=== PATIENT | male | born 1940 | race Caucasian/White ===

== ENCOUNTER 2017-07-28 15:28 | Inpatient (IN) ==
[2017-07-28] MEDS ORDERED: ASPIRIN 325 MG TABLET PO STA (15:56)
[2017-07-28] MEDS ORDERED: NITROGLYCERIN 2% OINT 1 INCH/GM PACK TOP STA (15:56)
[2017-07-28] MEDS ORDERED: ONDANSETRON 4 MG/2 ML VIAL IV STA (15:56)
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
[2017-07-28 16:28] LABS: Basophils % 0.7 % (0.0-0.8); Eosinophils # 0.1 10*3/uL (0.0-0.87); Eosinophils % 2.2 % (0.00-10.9); Hematocrit 37.2 VOL% (42.0-52.0); Hemoglobin 12.5 GM/DL (14.0-18.0); Immature Granulocytes % 0.4 %; Immature Granulocytes Absolute 0.02 #; Lymphocytes % 18.2 % (21.2-54.2); Mean Corpuscular HGB Conc 33.6 GM/DL (32-36); Mean Corpuscular Hemoglobin 28 PG (27-34); Mean Corpuscular Volume 82.1 FL (87-102); Mean Platelet Volume 11.9 FL (9.6-12.0); Monocytes # 0.6 10*3/uL (0.11-0.8); Monocytes % 11.2 % (1.7-12.7); Neutrophils # 3.6 10*3/uL (1.4-7.4); Neutrophils % 67.3 % (38.7-73.9); Platelet Count 120 T/CUMM (130-400); Red Blood Count 4.53 MC/CUMM (3.8-5.5); Red Cell Distribution Width 14.6 % (9.3-17.3); White Blood Count 5.4 T/CUMM (4-12)
[2017-07-28 16:34] LABS: Apearance,Urine CLEAR (Clear); Bilirubin,Urine Negative (Negative); Blood, Urine Negative (Negative); Glucose,Urine (UA) Negative (Negative); Ketones,Urine Negative (Negative); Mucus,Urine Occasional /LPF (Occasional); Nitrite,Urine Negative (Negative); Protein,Urine Negative; RBC,Urine <1 /HPF (0-4); Urine Color Straw (Yellow); Urine Specific Gravity 1.003 (1.001-1.035); Urine Urobilinogen < 2.0 EU/DL (0.2-1.0)
[2017-07-28] MEDS ORDERED: ASPIRIN 325 MG TABLET ONE (16:37)
[2017-07-28] MEDS ORDERED: NITROGLYCERIN 2% OINT 1 INCH/GM PACK TOP ONE (16:37)
[2017-07-28] MEDS ORDERED: ONDANSETRON 4 MG/2 ML VIAL ONE (16:37)
[2017-07-28 16:56] LABS: INR 1.1; PT Patient Result 11.9 SECS; Partial Thromboplastin Time 31.5 SECS (0-40)
[2017-07-28 17:02] LABS: Alanine Aminotransferase 17 U/L (16-61); Albumin 3.7 G/DL (3.4-5.0); Alkaline Phosphatase 69 U/L (45-117); Aspartate Amino Transferase 17 U/L (0-37); Blood Urea Nitrogen 22 MG/DL (7-18); Calcium 9.7 MG/DL (8.5-10.1); Glucose 135 MG/DL (74-106); Magnesium 2.2 MG/DL (1.8-2.4); Osmolality,Calculated 279.7 MOS/KG (273-304); Potassium 3.9 MMOL/L (3.5-5.1); Sodium 138 MMOL/L (136-145); Total Protein 6.8 G/DL (6.4-8.3); Troponin I Only 0.024 NG/ML (0.00-0.045)
[2017-07-28] MEDS ORDERED: ONDANSETRON 4 MG/2 ML VIAL IV PRN (17:13)
[2017-07-28] MEDS ORDERED: DEXTROSE 50% 25 GM/50 ML SYRINGE IV PRN (17:13)
[2017-07-28] MEDS ORDERED: GLUCAGON 1 MG VIAL IM PRN (17:13)
--- NOTE | 2017-07-28 18:35 | XRay Report ---
Portable chest July 28, 2017 Indication: Shortness of breath Comparison images dated July 25, 2017 Findings: Coronary artery bypass graft with stable cardiomegaly. Lungs are clear bilaterally. No acute osseous abnormality. Impression: Stable chest. No acute cardiopulmonary findings PROCEDURE INTERPRETED AT [facility] DEPARTMENT OF RADIOLOGY Final Report Signed by: Viet Preciado
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
[2017-07-28] MEDS ORDERED: ZALEPLON 5 MG CAPSULE PO PRN (20:24)
[2017-07-28] MEDS ORDERED: FUROSEMIDE 40 MG/4 ML VIAL IV ONE (20:26)
[2017-07-28] MEDS: ISOSORBIDE MONONITRATE 60 MG TABLET PO SCH (20:50)
[2017-07-28] MEDS: POTASSIUM CHLORIDE 10 MEQ TABLET PO SCH (20:50)
[2017-07-28] MEDS: traZODone 50 MG TABLET PO SCH (20:50)
[2017-07-28] MEDS: PANTOPRAZOLE 40 MG TABLET PO SCH (20:51)
[2017-07-28] MEDS: CARVEDILOL 6.25 MG TABLET PO SCH (20:51)
[2017-07-28] MEDS: POTASSIUM CITRATE 10 MEQ TABLET PO SCH (20:51)
[2017-07-28] MEDS ORDERED: FUROSEMIDE 40 MG TABLET PO SCH (21:00)
[2017-07-28] MEDS ORDERED: CARVEDILOL 3.125 MG TABLET PO SCH (21:00)
[2017-07-28] MEDS: NITROGLYCERIN 2% OINT 1 INCH/GM PACK TOP SCH (21:37)
[2017-07-29] MEDS: NITROGLYCERIN 2% OINT 1 INCH/GM PACK TOP SCH ×2 (01:04→09:27)
[2017-07-29 05:40] LABS: Calcium 9.3 MG/DL (8.5-10.1); Magnesium 2.3 MG/DL (1.8-2.4); Osmolality,Calculated 285.4 MOS/KG (273-304); Potassium 3.8 MMOL/L (3.5-5.1)
[2017-07-29 05:45] LABS: Troponin I Only 0.03 NG/ML (0.00-0.045)
--- NOTE | 2017-07-29 06:58 | EKG Report ---
Stationary ECG Study [facility] ER Test Date: 07/28/2017 3:36:22 PM Pat Name: BRIDGETTE GILLESPIE Department: Room: 275 Gender: M Rn Corrections: : 1940 Requested by: Vandana Camp Order Number: [id number] Alan MD: JAHAIRA BISHOP Intervals [place] Rate: 62 P: 999 PA: 0 QRS: 12 QRSD: 106 T: 147 QT: 421 QTc: 426 Interpretive Statements ATRIAL FIBRILLATION POSSIBLE OLD ANTEROSEPTAL INFARCT NSSTT Electronically Signed On 07-29-17 15:39:07 CDT by JAHAIRA BISHOP [email or web address]
--- NOTE | 2017-07-29 07:39 | EKG Report ---
Stationary ECG Study [facility] Test Date: 07/29/2017 7:38:47 AM Pat Name: BRIDGETTE GILLESPIE Department: Room: 275 Gender: M Brick Maker: : 1940 Requested by: Ludwig Arriaga Order Number: [id number] Reading MD: JAHAIRA BISHOP Intervals [place] Rate: 59 P: 999 UT: 0 QRS: 48 QRSD: 108 T: 47 QT: 456 QTc: 454 Interpretive Statements ATRIAL FIBRILLATION LOW QRS VOLTAGE IN PRECORDIAL LEADS Electronically Signed On 07-29-17 16:02:28 CDT by JAHAIRA BISHOP [email or web address]
[2017-07-29] MEDS ORDERED: FUROSEMIDE 40 MG TABLET PO SCH (08:00)
[2017-07-29] MEDS ORDERED: POTASSIUM CHLORIDE 20 MEQ TABLET PO SCH (09:00)
--- NOTE | 2017-07-29 09:50 | Cardiology Progress Note ---
Cardiology - PN: Subj Interval history: Cardiology note 76-year-old man admitted with chest pain and shortness of breath. Chest x-ray shows cardiomegaly with cephalization of flow and elevated BNP 354. Feels better today. He is worried about his invalid who is at home and bedridden. No chest pain Telemetry shows controlled A. fib O2 sat 94% on 2 L Irregular rhythm no murmur Decreased breath sounds but fairly clear Abdomen benign Left carotid enterectomy scar with faint bilateral bruits Lab data today Sodium 140 potassium 3.8 chloride 103 CO2 33 BUN 23 creatinine 1.60 Total CPK negative 2 with trivial troponin 0 0.024 and 0.030 Glucose 159 magnesium 2.3 INR 1.1 Impression Recurrent chest pain and shortness of breath CHF with cardiomegaly cephalization of flow and elevated BNP 354 Status post three-vessel CABG November 1995 PEREZ graft to LAD, vein graft to diagonal, vein graft to right coronary Status post mid RCA stent May 26, [address] Guerin. At that time the vein graft to the right coronary and vein graft to diagonal were occluded with a patent PEREZ Status post stenting of the distal left main trunk June 17, [address] Guerin Abnormal Lexiscan cardiac stress test in the [facility] office last week Ejection fraction 25% by echo January 2016 Status post left carotid endarterectomy Active smoker Chronic atrial fibrillation 6 feet 1 inches tall 236 pounds Sedentary and unsteady gait. Patient reluctant to use a cane Erosive gastritis and hiatal hernia diagnosed by EGD April 30, 2017 Status post endovascular AAA repair and left common iliac artery repair and coil embolization left internal iliac artery by Dr. Holt February 06, 2017 History of gout on allopurinol Mild chronic renal insufficiency History of prostate cancer with prostatectomy 2004 Microcytic anemia hemoglobin 12.5 MCV 82 Home stress. His of 59 years is bedridden and he is the primary caregiver. Plan Patient wants Dr. Guerin to do his cardiac cath. Nurse Sondra present for the full discussion. This is Dr. Guerin's off weekend and he will not be available until Sunday. Patient prefers to have cath on Sunday with Dr. Guerin. He also wants to go home to be with his . Will ambulate today and reassess in a.m. Continue aspirin and Plavix Echo Doppler IV Lasix BMP in a.m. Exam (Progress Note) - Constitutional Vitals: Period Temp Pulse Resp BP Sys/Real Pulse Ox Last 24 Hr 97.9 F-99.0 F 54-74 18-24 104-143/55-78 97-100 Result/EKG - Labs CBC & BMP: 07/28/17 16:13 07/29/17 04:49 Labs: Laboratory Results - last 24 hr 07/28/17 07/28/17 07/28/17 16:13 16:13 16:13 WBC 5.4 RBC 4.53 Hgb 12.5 L Hct 37.2 L MCV 82.1 L MCH 28 MCHC 33.6 RDW 14.6 Plt Count 120 L MPV 11.9 Neut % (Auto) 67.3 Lymph % (Auto) 18.2 L Dewey % (Auto) 11.2 Eos % (Auto) 2.2 Baso % (Auto) 0.7 Neut # (Auto) 3.6 Lymph # (Auto) 1.0 L Dewey # (Auto) 0.6 Eos # (Auto) 0.1 Baso # (Auto) 0.0 Immature Gran % 0.4 Nucleated RBC % 0.0 Immature Gran # 0.02 Nucleated RBCs # 0.00 Immature Plt Fraction 0.0 INR PT Patient/Control Mix Circ Anticoag PTT Sodium 138 Potassium 3.9 Chloride 101 Carbon Dioxide 29 Anion Gap 11.9 BUN 22 H Creatinine 1.50 H GFR Calculation 55 BUN/Creatinine Ratio 14.00 Glucose 135 H POC Glucose Calculated Osmolality 279.7 Calcium 9.7 Magnesium 2.2 Total Bilirubin 1.00 AST 17 ALT 17 Alkaline Phosphatase 69 Total Creatine Kinase 30 L CK-MB (CK-2) < 1.0 Troponin I 0.024 B-Natriuretic Peptide 354 H Total Protein 6.8 Albumin 3.7 Globulin 3.1 Albumin/Globulin Ratio 1.1 Lipase 165.0 Urine Color Urine Appearance Urine pH Ur Specific [place] Urine Protein Urine Glucose (UA) Urine Ketones Urine Blood Urine Nitrate Urine Bilirubin Urine Urobilinogen Urine Leukocytes Urine RBC Urine Mucus Ur Culture Indicated? 07/28/17 07/28/17 07/28/17 16:13 16:13 20:48 WBC RBC Hgb Hct MCV MCH MCHC RDW Plt Count MPV Neut % (Auto) Lymph % (Auto) Dewey % (Auto) Eos % (Auto) Baso % (Auto) Neut # (Auto) Lymph # (Auto) Dewey # (Auto) Eos # (Auto) Baso # (Auto) Immature Gran % Nucleated RBC % Immature Gran # Nucleated RBCs # Immature Plt Fraction INR 1.1 PT Patient/Control Mix 11.9 Circ Anticoag PTT 31.5 Sodium Potassium Chloride Carbon Dioxide Anion Gap BUN Creatinine GFR Calculation BUN/Creatinine Ratio Glucose POC Glucose 177 H Calculated Osmolality Calcium Magnesium Total Bilirubin AST ALT Alkaline Phosphatase Total Creatine Kinase CK-MB (CK-2) Troponin I B-Natriuretic Peptide Total Protein Albumin Globulin Albumin/Globulin Ratio Lipase Urine Color Straw Urine Appearance Clear Urine pH 7.0 Ur Specific [place] 1.003 Urine Protein Negative Urine Glucose (UA) Negative Urine Ketones Negative Urine Blood Negative Urine Nitrate Negative Urine Bilirubin Negative Urine Urobilinogen < 2.0 H Urine Leukocytes Negative Urine RBC <1 Urine Mucus Occasional Ur Culture Indicated? Not indicated 07/29/17 07/29/17 04:49 04:50 WBC RBC Hgb Hct MCV MCH MCHC RDW Plt Count MPV Neut % (Auto) Lymph % (Auto) Dewey % (Auto) Eos % (Auto) Baso % (Auto) Neut # (Auto) Lymph # (Auto) Dewey # (Auto) Eos # (Auto) Baso # (Auto) Immature Gran % Nucleated RBC % Immature Gran # Nucleated RBCs # Immature Plt Fraction INR PT Patient/Control Mix Circ Anticoag PTT Sodium 140 Potassium 3.8 Chloride 103 Carbon Dioxide 33 H Anion Gap 7.8 BUN 23 H Creatinine 1.60 H GFR Calculation 51 BUN/Creatinine Ratio 14.00 Glucose 159 H POC Glucose Calculated Osmolality 285.4 Calcium 9.3 Magnesium 2.3 Total Bilirubin AST ALT Alkaline Phosphatase Total Creatine Kinase 21 L D CK-MB (CK-2) Troponin I 0.030 B-Natriuretic Peptide Total Protein Albumin Globulin Albumin/Globulin Ratio Lipase Urine Color Urine Appearance Urine pH Ur Specific [place] Urine Protein Urine Glucose (UA) Urine Ketones Urine Blood Urine Nitrate Urine Bilirubin Urine Urobilinogen Urine Leukocytes Urine RBC Urine Mucus Ur Culture Indicated?
[2017-07-29 09:57] LABS: Troponin I Only 0.025 NG/ML (0.00-0.045)
[2017-07-29] MEDS: ISOSORBIDE MONONITRATE 60 MG TABLET PO SCH ×2 (10:08→20:20)
[2017-07-29] MEDS: POTASSIUM CITRATE 10 MEQ TABLET PO SCH ×2 (10:10→20:20)
[2017-07-29] MEDS: MULTIVITAMIN (CENTRUM) TABLET PO SCH (10:10)
[2017-07-29] MEDS: ALLOPURINOL 100 MG TABLET PO SCH (10:10)
[2017-07-29] MEDS: CLOPIDOGREL 75 MG TABLET PO SCH (10:11)
[2017-07-29] MEDS: CARVEDILOL 6.25 MG TABLET PO SCH ×2 (10:11→20:20)
[2017-07-29] MEDS: ASPIRIN 325 MG TABLET PO SCH (10:11)
[2017-07-29] MEDS: FUROSEMIDE 40 MG/4 ML VIAL IV SCH ×2 (10:11→16:33)
[2017-07-29] MEDS: CALCIUM (CARBONATE)/VITAMIN D 600 MG-400 UNIT TABLET PO SCH (10:11)
[2017-07-29] MEDS: PANTOPRAZOLE 40 MG TABLET PO SCH ×2 (10:16→20:21)
[2017-07-29] MEDS: POTASSIUM CHLORIDE 10 MEQ TABLET PO SCH (10:48)
--- NOTE | 2017-07-29 12:27 | ECHO Report ---
Kayden Braun Exam Date: 07/29/2017 08:28 Referring Physician: Technologist: Jacqueline Blair LRCP Age: 76 Ht (in): 69 Wt (lb): 275 Gender: M Exam Location: [facility] Echo Indications: cardiomyopathy, chest pain BP: 114 / 55 HR: 57 Rhythm: Atrial fibrillation Technical Quality: Fair IMPRESSIONS EF 30 % global hypokinesis. Normal right ventricular size and systolic function. Moderately increased right atrial size. The left atrium is mildly enlarged. Mildly thickened mitral valve. Mild mitral valve regurgitation. Aortic valve sclerosis. Trace aortic valve regurgitation. [id number] tricuspid valve regurgitation. PAP55 mmHG. Trace pulmonary valve regurgitation. No pericardial effusion. Normal aorta. MEASUREMENTS (Male / Female) Normal Values 2D ECHO LV Diastolic Diameter PLAX 5.4 cm 4.2 - 5.9 / 3.9 - 5.3 cm LV Systolic Diameter PLAX 4.6 cm LV Fractional Shortening PLAX 13.9 % IVS Diastolic Thickness 1.3 cm 0.6 - 1.0 / 0.6 - 0.9 cm LVPW Diastolic Thickness 1.3 cm 0.6 - 1.0 / 0.6 - 0.9 cm Aortic Root Diameter 3.0 cm LA Systolic Diameter LX 5.1 cm 3.0 - 4.0 / 2.7 - 3.8 cm DOPPLER TR Peak Velocity 251.0 cm/s TR Peak Gradient 25.2 mmHg FINDINGS Left Ventricle EF 30 % global hypokinesis. Right Ventricle Normal right ventricular size and systolic function. Right Atrium Moderately increased right atrial size. Left Atrium The left atrium is mildly enlarged. Mitral Valve Mildly thickened mitral valve. Mild mitral valve regurgitation. Aortic Valve Aortic valve sclerosis. Trace aortic valve regurgitation. Tricuspid Valve Morphologically normal tricuspid valve. [id number] tricuspid valve regurgitation. PAP55 mmHG. Pulmonic Valve Pulmonic valve not well visualized. Trace pulmonary valve regurgitation. Pericardium No pericardial effusion. Aorta Normal aorta. Parish Arriaga (Electronically Signed) Final Date: 29 July 2017 12:26
[2017-07-29] MEDS ORDERED: MAGNESIUM SULF RIDER 2 GM in PREMIX 1 EACH IV PRN (15:15)
[2017-07-29] MEDS ORDERED: diphenhydrAMINE CAP 25 MG CAPSULE PO ONE (15:15)
[2017-07-29] MEDS ORDERED: DIAZEPAM 5 MG TABLET PO ONE (15:15)
[2017-07-29] MEDS ORDERED: POTASSIUM CHLORIDE RIDER 10 MEQ in PREMIX 1 EACH IV PRN (15:15)
--- NOTE | 2017-07-29 15:15 | History and Physical Update ---
Sedation H&P Update - History and Physical H&P was reviewed, the patient examined and there: are no changes in the patients condition since last H&P was completed. - Dictation Physical: refer to H&P completed by admitting physician - Physical Exam Mental Status: alert and oriented Heart: regular rate and rhythm Lung: clear to auscultation Abdomen: within normal limits Vitals: within normal limits - Sedation Plan for Sedation: moderate Patient Consent: Procedure disscussed with patient and patinet has consented., Risks and benefits were discussed with patient,including infection,, bleeding, injury to surrounding structures, seizure, temporary nerve, Patient understands and accepts potential risks/benefits and agrees to, proceed. ASA Class: II Airway Assessment: Class II: Soft palate, uvula, fauces visible
--- NOTE | 2017-07-29 15:15 | Event Note ---
Event note Called back by patient and his son Mike. They now want me to proceed with cardiac cath tomorrow morning at 8 AM. Procedure, risk benefits reviewed in detail. All questions answered. He is now comfortable and wished to proceed in a.m. Plan Mucomyst 600 mg twice daily 4 doses Normal saline hydration Heart cath possible stent in a.m.
[2017-07-29] MEDS: ACETYLCYSTEINE 600 MG CAPSULE PO SCH ×2 (16:33→20:21)
[2017-07-29] MEDS: SODIUM CHLORIDE 0.9% 1,000 ML IV SCH (19:50)
[2017-07-29] MEDS: traZODone 50 MG TABLET PO SCH (20:20)
[2017-07-29] MEDS: INSULIN LISPRO 100 UNIT/ML SUBCUT PRN (21:05)
[2017-07-30 05:41] LABS: Calcium 9.2 MG/DL (8.5-10.1); Osmolality,Calculated 281.5 MOS/KG (273-304); Potassium 3.8 MMOL/L (3.5-5.1)
[2017-07-30] MEDS: SODIUM CHLORIDE 0.9% 1,000 ML IV SCH ×2 (06:26→22:10)
[2017-07-30] MEDS ORDERED: diphenhydrAMINE CAP 25 MG CAPSULE ONE (07:08)
[2017-07-30] MEDS ORDERED: DIAZEPAM 5 MG TABLET ONE (07:08)
[2017-07-30] MEDS ORDERED: LIDOCAINE 1% 20 ML VIAL ONE ×2 (07:11→09:04)
[2017-07-30] MEDS ORDERED: HEPARIN/NACL 0.9% 2 UNITS/ML 1,000 ML IV ONE (07:11)
[2017-07-30] MEDS: CLOPIDOGREL 75 MG TABLET PO SCH ×2 (07:31→08:15)
[2017-07-30] MEDS: ASPIRIN 325 MG TABLET PO SCH ×2 (07:31→08:14)
[2017-07-30] MEDS: CARVEDILOL 6.25 MG TABLET PO SCH ×3 (07:31→20:22)
[2017-07-30] MEDS ORDERED: MIDAZOLAM 2 MG/2 ML VIAL ONE (07:50)
[2017-07-30] MEDS ORDERED: HYDROmorphone 2 MG/1 ML VIAL ONE (07:50)
[2017-07-30] MEDS: FUROSEMIDE 40 MG/4 ML VIAL IV SCH ×2 (08:14→17:15)
[2017-07-30] MEDS ORDERED: diphenhydrAMINE 50 MG/1 ML VIAL ONE (08:54)
--- NOTE | 2017-07-30 10:06 | Cardiac Catheterization ---
Date of Procedure:: 07/30/17 Pre-op Diagnosis: Chest pain cardiomyopathy severe CAD Post-op diagnosis: same Procedure: Cardiac catheterization procedure note #1 left heart catheterization #2 selective coronary angiography #3 PEREZ angiography #4 left ventriculography #5 abdominal aortogram Visipaque was used for the procedure Description of procedure Following sterile preparation draping of the right groin, local anesthesia was achieved by infiltration 1% Xylocaine. Using a Cook needle the right femoral artery was cannulated and a #6 sheath was inserted. Despite using a Omari wire catheter would not advance into the iliac system. The left groin was prepped and draped in sterile fashion and local anesthesia was administered. Using a Cook needle the left femoral artery was cannulated and a #6 sheath was inserted. Using a Omari wire the right coronary Amplatz diagnostic cath introduced and advanced to the dario ascending aorta where pressure was recorded. The right coronary was cannulated and angiography was performed in the [place] projection only. Over a guidewire the catheter change for a 6 Norwegian JL 5 catheter and the left main was cannulated. Limited angiograms were performed to conserve dye. Over a guidewire the catheter change for a 6 Norwegian DONNA catheter and PEREZ angiography was performed in [place] and [place] projections. Over a guidewire the cath change for a 6 Norwegian pigtail catheter which was advanced retrograde into the left ventricle and the end-diastolic pressure was recorded. Left ventriculography was performed the [place] projection using 24 cc of contrast. A pullback was made across the aortic valve. An abdominal aortogram was then performed using 36 cc of contrast. Both femoral sheath were then removed and hemostasis was achieved by direct compression with prompt cessation of bleeding and prompt return of femoral pulses. The patient was transported back to the telemetry floor in stable condition. Hemodynamic data Left ventricle 109/10 Aorta 109/49 mean 66 Selective coronary angiography The the distal left main trunk stent site is widely patent. The LAD has moderate proximal disease before the first septal business services administrator. The circumflex is widely patent with mild irregularities only. The dominant coronary artery has a widely patent mid vessel stent site. The proximal posterior LV branch is now occluded. The PDA extends to the apex and has mild disease only. The PEREZ graft to the LAD is widely patent. The distal LAD wraps on the apex and has mild disease only. The diagonal vein graft and RCA vein graft are known to be chronically occluded and were not cannulated. Left ventriculography The end-systolic and end-diastolic glands are increased. The inferobasal segment is akinetic and there is severe anteroapical hypokinesis. Ejection fraction 20%. No evidence for mitral regurgitation under the conditions of the study. Abdominal aortogram The endovascular stent in the abdominal aorta is widely patent. The bilateral iliac limb stents are also widely patent. The right common femoral artery and the origin of the profunda femoral artery have greater than 50% stenosis. Conclusions #1 LVEDP 10 #2 ejection fraction 20% with inferobasal akinesis and severe anteroapical hypokinesis #3 no mitral regurgitation #4 no aortic valve gradient #5 left main trunk-widely patent distal stent site #6 LAD-moderate proximal disease #7 circumflex system-widely patent with mild irregularities only #8 dominant right coronary-patent mid vessel stent site with occluded proximal posterior LV branch and a patent PDA #9 PEREZ graft to LAD-widely patent with good runoff. #10 SVG to diagonal-occluded at origin #11 SVG to RCA-occluded at origin #12 abdominal aortogram-the endovascular stent is widely patent and the bilateral iliac lymph stents are also patent the right common femoral artery and the origin of the profunda have greater than 50% stenosis. Disposition The patient status post three-vessel CABG 1995 with PEREZ graft to LAD, vein graft to diagonal, vein graft to right coronary. Both vein grafts are known to be chronically occluded. The mid RCA stent site from May 26, 2014 is widely patent. The new finding is occlusion of the proximal posterior LV branch and inferobasal akinesis. The distal left main stent from June 17, 2014 is widely patent. The patient remains well revascularized. However, he has evolved into an end-stage ischemic cardiomyopathy. Ejection fraction is now 20% with inferobasal akinesis and severe anteroapical hypokinesis. He will continue Mucomyst and normal saline hydration and a BMP rechecked in the morning. Both groins were punctured and if they are stable, he will begin anticoagulation tomorrow. Dr. Guerin will discuss with him defibrillator in the office. Cine pictures were reviewed with his daughter Salud and son Mike Implants: No implants Anesthesia: moderate conscious sedation Surgeon / Physician: Ludwig Arriaga Estimated blood loss: minimal Specimens: none sent Condition: stable Disposition: floor - Medications / Follow-up
[2017-07-30] MEDS ORDERED: NITROGLYCERIN SL 0.4 MG TABLET SL PRN (10:07)
[2017-07-30] MEDS ORDERED: DEXTROSE 50% 25 GM/50 ML VIAL IV PRN (10:07)
[2017-07-30] MEDS ORDERED: GLUCAGON 1 MG VIAL IM PRN (10:07)
[2017-07-30] MEDS: POTASSIUM CITRATE 10 MEQ TABLET PO SCH ×2 (10:08→20:22)
[2017-07-30] MEDS: ISOSORBIDE MONONITRATE 60 MG TABLET PO SCH ×2 (10:08→20:22)
[2017-07-30] MEDS: PANTOPRAZOLE 40 MG TABLET PO SCH ×2 (10:08→20:21)
[2017-07-30] MEDS: ACETYLCYSTEINE 600 MG CAPSULE PO SCH ×2 (10:08→20:22)
[2017-07-30] MEDS: CALCIUM (CARBONATE)/VITAMIN D 600 MG-400 UNIT TABLET PO SCH (12:53)
[2017-07-30] MEDS: MULTIVITAMIN (CENTRUM) TABLET PO SCH (12:53)
[2017-07-30] MEDS: ALLOPURINOL 100 MG TABLET PO SCH (12:53)
[2017-07-30] MEDS: traZODone 50 MG TABLET PO SCH (20:22)
[2017-07-30] MEDS: INSULIN LISPRO 100 UNIT/ML SUBCUT PRN (20:22)
[2017-07-31 06:21] LABS: Calcium 8.7 MG/DL (8.5-10.1); Osmolality,Calculated 283.5 MOS/KG (273-304); Potassium 3.9 MMOL/L (3.5-5.1)
[2017-07-31] MEDS: ALLOPURINOL 100 MG TABLET PO SCH (08:53)
[2017-07-31] MEDS: MULTIVITAMIN (CENTRUM) TABLET PO SCH (08:54)
[2017-07-31] MEDS: CARVEDILOL 6.25 MG TABLET PO SCH (08:54)
[2017-07-31] MEDS: ISOSORBIDE MONONITRATE 60 MG TABLET PO SCH (08:54)
[2017-07-31] MEDS: CALCIUM (CARBONATE)/VITAMIN D 600 MG-400 UNIT TABLET PO SCH (08:54)
[2017-07-31] MEDS: POTASSIUM CITRATE 10 MEQ TABLET PO SCH (08:54)
[2017-07-31] MEDS: CLOPIDOGREL 75 MG TABLET PO SCH (08:54)
[2017-07-31] MEDS: ACETYLCYSTEINE 600 MG CAPSULE PO SCH (08:54)
[2017-07-31] MEDS: ASPIRIN 325 MG TABLET PO SCH (08:54)
[2017-07-31] MEDS: PANTOPRAZOLE 40 MG TABLET PO SCH (08:55)
[2017-07-31] MEDS: FUROSEMIDE 40 MG/4 ML VIAL IV SCH (08:55)
--- NOTE | 2017-07-31 10:04 | Discharge Summary ---
Hospital Course - Hospital Course Hospital Course: I have personally interviewed and examined the patient, reviewed the chart and discussed medical decision-making with practitioner Naveen. I have read this note and agree with the documentation herein. CHAIN CARRIER: Dr. Chaka Guerin Mr. Braun, 76-year-old WM with history of CAD, status post three-vessel CABG November 1995 with PEREZ to LAD, vein graft to diagonal and vein graft to RCA. She is status post mid RCA stent May 26, 2014. At that time, the vein graft to right coronary and vein graft to diagonal were occluded. PEREZ graft was patent. Status post stenting of the distal left main trunk June 17, [address] Guerin. Most recent ejection fraction 25% by echocardiogram January 2016. Abnormal Lexiscan cardiac stress in the [facility] office last week presented to [facility] with complaints of recurrent chest pain and shortness of breath. Subsequently, he underwent left heart catheterization per Dr. Parish Arriaga July 30, 2017 with the following impressions noted: IMPRESSIONS 1. ejection fraction 20% with inferobasal akinesis and severe anteroapical hypokinesis 2. left main trunk-widely patent distal stent site 3. LAD-moderate proximal disease 4. circumflex system-widely patent with mild irregularities only 5. dominant right coronary-patent mid vessel stent site with occluded proximal posterior LV branch and a patent PDA 6. PEREZ graft to LAD-widely patent with good runoff. 7. SVG to diagonal-occluded at origin 8. SVG to RCA-occluded at origin 9. abdominal aortogram-the endovascular stent is widely patent and the bilateral iliac lymph stents are also patent the right common femoral artery and the origin of the profunda have greater than 50% stenosis. DISPOSITION The patient status post three-vessel CABG 1995 with PEREZ graft to LAD, vein graft to diagonal, vein graft to right coronary. Both vein grafts are known to be chronically occluded. The mid RCA stent site from May 26, 2014 is widely patent. The new finding is occlusion of the proximal posterior LV branch and inferobasal akinesis. The distal left main stent from June 17, 2014 is widely patent. The patient remains well revascularized. However, he has evolved into an end-stage ischemic cardiomyopathy. Ejection fraction is now 20% with inferobasal akinesis and severe anteroapical hypokinesis. Both groins were punctured and if they are stable, he will begin anticoagulation July 31, 2017. Dr. Guerin will discuss with him defibrillator in the office. 2016 Post catheterization patient was transported back to the telemetry unit in stable condition. He has done well and has been without complications. He is without complaints of chest pain, heaviness or tightness this morning. Bilateral groins soft without bleeding and hematoma. Soft bruit auscultated to left groin. Ultrasound was obtained and pseudoaneurysm was ruled out. Patient has ambulated around the room without difficulty. Bilateral groins have remained stable post ambulation. Groin precautions have been reviewed with the patient. He verbalizes understanding. Creatinine post catheterization is stable at 1.5, which is his baseline renal function. Unfortunately, his blood pressure will not allow initiation of DORITA inhibitor or ARB. These are also been avoided due to fear of worsening renal function. This could possibly be challenged as an outpatient. Patient may be eligible for ICD placement. I will defer this to his primary motel clerk, Dr. Guerin. This will be discussed at his follow-up appointment in 1 to 2 weeks. Patient's preadmission diabetic medications be continued upon discharge. She will be given a follow- up appoint with his PCP. Patient is anxious for discharge home. Having felt that he has met maximal medical therapy, he will be discharged home in stable condition. Of note, patient is noted to have chronic atrial fibrillation. Chads vasc score6. Eliquis will be started today for stroke prevention. He has been given a prescription for this at discharge. Patient has verbalized understanding of discharge instructions and discharge medications. - Time spent with patient Time with patient DS: Greater than 30 minutes Diagnosis - Discharge Diagnosis (1) Coronary artery disease Status: Chronic (2) Chest pain Status: Resolved (3) Diabetes Status: Chronic (4) Ischemic cardiomyopathy Status: Chronic (5) Chronic a-fib Status: Chronic Specialty Discharge - Follow Up or Referrals Follow up with: Chaka Guerin MD [Primary Care Provider] - 08/16/17 9:00 am (Follow-up 1-2 weeks with EKG, CBC and BMP. Come to appointment at 0840 for labs.) Discharge Plan - Discharge Data Disposition: Disch To Home/Self Care Condition at Discharge: Stable Discharge Diet: heart healthy, low fat, low cholesterol, low salt diet Activity: no lifting (Avoid heavy lifting and squatting 1 week), other (Post cath expectations) Hygiene: may shower, other (Post cath expectations) Weight Bearing at Discharge: other (Post cath expectations) Driving: other (Post cath expectations) Contact your physician if you experience:: fever over 101, Difficulty voiding, Redness or swelling, Nausea/Vomiting, Shortness of breath, Bleeding, pain uncontrolled by pain medications - Discharge Medications New Apixaban [Eliquis] 2.5 mg PO BID #60 tablet Aspirin EC Tab 81 mg PO DAILY #30 tablet Nitroglycerin Sl Tab [Nitrostat] 0.4 mg SL Q5M PRN #1 bottle PRN Reason: Chest Pain Atorvastatin [Lipitor] 40 mg PO BEDTIME #30 tablet Continue Furosemide Tab [Lasix Tab] 40 mg PO BID Allopurinol 25 mg PO DAILY Clopidogrel [Plavix] 75 mg PO QAM Potassium Citrate [Urocit K] 20 meq PO BID Multivitamin [Multivitamins] 1 tablet PO DAILY Isosorbide Mononitrate [Isosorbide Mononitrate ER] 60 mg PO BID Carvedilol 6.25 mg PO BID Calcium Carbonate/Vitamin D3 [Calcium 600-Vit D3 800 Tablet] 1 each PO DAILY Potassium Chloride [Klor-Con 10] 10 meq PO QID Insulin Lispro [HumaLOG] 1 unit SUBCUT BID PRN PRN Reason: diabetes Pantoprazole Tab [Protonix Tab] 40 mg PO BID #60 tablet Trazodone HCl 100 mg PO BEDTIME - Follow Up or Referral Follow Up: Chaka Guerin MD [Primary Care Provider] - 08/16/17 9:00 am (Follow-up 1-2 weeks with EKG, CBC and BMP. Come to appointment at 0840 for labs.) - Forms/Instructions Instructions: Coronary Artery Disease (GEN), Left Heart Catheterization (DC), How to Stop Smoking (GEN), Heart Healthy Diet (GEN), Cigarette Smoking and Your Health, Industrial Relations Director (GEN) Exam - Constitutional Vitals: Period Temp Pulse Resp BP Sys/Real Pulse Ox Last 24 Hr 97.1 F-98.7 F 51-78 16-20 98-150/46-80 97-100 Exam: General: Appears well with no apparent distress. Pleasant and cooperative. Appears comfortable. HEENT: PERRL, normocephalic, atraumatic. Mucous membranes moist. No jaundice noted. Conjunctiva moist and clear, sclerae anicteric. Hard of hearing. Neck: No JVD/HJR, no thyromegaly or lymphadenopathy noted. No carotid bruit appreciated Cardiac: Irregular rhythm. No murmur rub or gallop. Lungs: Clear to auscultation without accessory muscle use to assist the respiratory pattern. Abdomen: Soft, bowel sounds normoactive. Nontender and nondistended. No abdominal bruit or thrill noted. No masses noted. Extremities: No clubbing, cyanosis noted. No edema noted. Upper extremity pulses 2+. Lower extremity pulses 2+. Capillary refill less than 3 seconds. Bilateral groin soft without hematoma. Soft left groin bruit auscultated. Distal pulses 2+. Skin: No unusual lesions or rashes. No skin breakdown appreciated. Neuro: Awake, alert and oriented 3. Moves all extremities well without hemiparesis or paralysis. No essential tremor is appreciated. Discharge Results Labs on day of discharge: Labs from last 24 hours 07/31/17 07/31/17 07/31/17 12:06 07:47 04:32 Sodium 139 Potassium 3.9 Chloride 103 Carbon Dioxide 28 Anion Gap 11.9 BUN 26 H Creatinine 1.50 H GFR Calculation 55 BUN/Creatinine Ratio 17.00 Glucose 134 H POC Glucose 250 H 135 H Calculated Osmolality 283.5 Calcium 8.7 07/30/17 07/30/17 19:21 16:49 Sodium Potassium Chloride Carbon Dioxide Anion Gap BUN Creatinine GFR Calculation BUN/Creatinine Ratio Glucose POC Glucose 177 H 97 Calculated Osmolality Calcium - Imaging and Cardiology Cardiology Procedure: report reviewed by me Procedure: Chest x-ray: report reviewed by me, Ultrasound: report reviewed by me DS: Provider Date of admission: 07/28/17 17:12 Primary care physician: Chaka Guerin MD Attending physician on admission: Ludwig Arriaga MD Consults: 07/30/17 10:07 Consult to Cardiac Rehabilitation [CONS] Routine Reason for Cardiac Rehabilitation: Risk Factor Modification Other Consult Comment: Evaluate and recommend Discharging clinician: Krystal Hodge NP Expected date of discharge: 07/31/17
--- NOTE | 2017-07-31 11:36 | Ultrasound Report ---
Exam: US arterial duplex LE LT limited pseudoaneurysm evaluation post heart catheter Date: 07/31/2017 9:12 AM Indication: Bruit question pseudoaneurysm Technical sonographic imaging was obtained with grayscale color flow analysis and spectral wave analysis performed. Comparison: None Findings: No obvious evidence of pseudoaneurysm the common femoral artery and vein are unremarkable. The inguinal regions are intact. Normal spectral wave analysis and color flow present. Impression: 1. No obvious pseudoaneurysm present. PROCEDURE INTERPRETED AT [facility] DEPARTMENT OF RADIOLOGY Final Report Signed by: Dr. Dom Cao
[2017-07-31 12:25] VITALS: BP 122/56
[2017-07-31] MEDS ORDERED: FUROSEMIDE 40 MG TABLET PO SCH (16:00)
[2017-07-31] MEDS ORDERED: ATORVASTATIN 40 MG TABLET PO SCH (21:00)
[2017-08-01] MEDS ORDERED: ASPIRIN EC 81 MG TABLET PO SCH (09:00)
--- NOTE | 2017-08-03 08:42 | Physician Query Form ---
CLICK EDIT DOCUMENT TO SELECT QUERY ANSWER --> OK --> SIGN Ginny Conrad RN Clinical Contract Negotiation Manager W) [phone] (f) [phone] [email or web address]: Make your selection(s) from the choices in EACH section by typing an "x" and enter comments in the comment section. Please use your independent medical judgment in providing your response. This request does not imply that any particular answer is desired or expected. CLINICAL INDICATORS: (Providers should not edit this section) Based on documentation of "CHF", OIT=[id number], ECHO showed EF 30%. Pt. treated with IV Lasix. Please provide further specificity regarding CHF. ACUITY: ( x) Acute ( ) Chronic ( ) Acute on Chronic ( ) Clinically unable to determine TYPE: ( ) Systolic (HFrEF - heart failure with reduced systolic function/EF) ( ) Diastolic (HFpEF - heart failure with preserved systolic function/EF) ( x) Combined Systolic/Diastolic ( ) Other, please specify: ( ) Clinically unable to determine ( ) Past Medical History of Systolic CHF ( ) Past Medical History of Diastolic CHF ( ) Clinically unable to determine COMMENTS: PLEASE ALSO DOCUMENT RESPONSE IN PROGRESS NOTES AND/OR DISCHARGE SUMMARY Use of terms such as suspected, likely, or probable (associated with a specific diagnosis that is being evaluated, monitored, or treated as if it exists) are acceptable and can be restated in the discharge summary if not ruled out. MTDD
== END 2017-07-31 13:15 | disposition home or self-care (01) | DRG 286 ==
LOC: N.ED 15:28 → N.EDINP 17:12 → N.TELES 19:02
PROVIDERS: ADMIT Internal Medicine Cardiovascular Disease; ATTEND Internal Medicine Cardiovascular Disease

== ENCOUNTER 2017-08-01 10:49 | Inpatient (IN) ==
[~2017-08-01 10:49] MED LIST: DEXAMETHASONE 10 MG/1 ML VIAL ONE; GLYCOPYRROLATE 0.4 MG/2 ML VIAL ONE; HEPARIN 10,000 UNIT/10 ML VIAL ONE; KETOROLAC 30 MG/1 ML VIAL ONE; LIDOCAINE 1% 5 ML VIAL ONE; NEOSTIGMINE 10 MG/10 ML VIAL ONE; PHENYLEPHRINE 1 MG/10 ML SYRINGE IV ONE; PROPOFOL 200 MG/20 ML VIAL IV ONE; ROCURONIUM 100 MG/10 ML VIAL IV ONE
--- NOTE | 2017-08-01 12:35 | Emergency Department Note ---
Joshua Robison Hilary, am scribing for, and in the presence of, Juan Manuel Viera MD 12:15. Maximiliano Robison Charles R, MD, personally performed the services described in this documentation, ascribed by Bhavana Lewis in my presence, and it is both accurate and complete . Arrival - Arrival ED Nursing Triage Note: patient was discharged from hospital on 07/31 sp heart cath, right leg started swelling yesterday after got home, right leg swollen and red. was instructed to come to be evaluated per Dr Guerin Mode of Arrival: Wheelchair Limitations: No Limitations Source: Patient, RN Notes Reviewed - History of Present Illness Onset (ago): hour(s) Consistency: constant Severity: mild Severity scale (1-10): 1 Quality: aching <Juan Manuel Viera - Last Filed: 08/01/17 14:13> <Jama Santos - Last Filed: 08/01/17 15:58> - Arrival Chief Complaint: Extremity Problem Stated Complaint: right leg swollen post heart cath Time Seen by Provider: 08/01/17 12:03 - History of Present Illness HPI Narrative: Pt is a 76 y/o male presenting to the ED with c/o right leg swelling and redness which onset yesterday. Pt was discharged from the hospital yesterday s/ p a heart cath. Yesterday his right leg started to swell and become tender and red. His daughter states that they tried to cath the right side and couldn't so they did the left and his heart is at 20% Ejection fracture. No other complaints or problems stated in the ED. (Bhavana Lewis) Pt is a 76 y/o male presenting to the ED with c/o right leg swelling and redness which onset yesterday. Pt was discharged from the hospital yesterday s/ p a heart cath. Yesterday his right leg started to swell and become tender and red. His daughter states that they tried to cath the right side and couldn't so they did the left and his heart is at 20% Ejection fracture. No other complaints or problems stated in the ED. (Juan Manuel Viera) Allergies/Adverse Reactions: Allergies Allergy/AdvReac Type Severity Reaction Status Date / Time codeine Allergy Intermediate ITCHING Verified 06/11/17 08:51 Home Medications: Home Medications Medication Instructions Recorded Confirmed Type Allopurinol 25 mg PO DAILY 04/07/16 08/01/17 History Clopidogrel [Plavix] 75 mg PO QAM 04/07/16 08/01/17 History Furosemide Tab [Lasix Tab] 40 mg PO BID 04/07/16 08/01/17 History Potassium Chloride [Klor-Con 10] 10 meq PO QID 01/31/17 08/01/17 History Insulin Lispro [HumaLOG] 1 unit SUBCUT BID PRN 02/06/17 08/01/17 History Multivitamin [Multivitamins] 1 tablet PO DAILY 02/06/17 08/01/17 History Potassium Citrate [Urocit K] 20 meq PO BID 02/06/17 08/01/17 History Pantoprazole Tab [Protonix Tab] 40 mg PO BID #60 tablet 04/30/17 08/01/17 Rx Calcium Carbonate/Vitamin D3 1 each PO DAILY 07/28/17 08/01/17 History [Calcium 600-Vit D3 800 Tablet] Carvedilol 6.25 mg PO BID 07/28/17 08/01/17 History Isosorbide Mononitrate [Isosorbide 60 mg PO BID 07/28/17 08/01/17 History Mononitrate ER] Trazodone HCl 100 mg PO BEDTIME 07/28/17 08/01/17 History Apixaban [Eliquis] 2.5 mg PO BID #60 tablet 07/31/17 08/01/17 Rx Aspirin EC Tab 81 mg PO DAILY #30 tablet 07/31/17 08/01/17 Rx Atorvastatin [Lipitor] 40 mg PO BEDTIME #30 tablet 07/31/17 08/01/17 Rx Nitroglycerin Sl Tab [Nitrostat] 0.4 mg SL Q5M PRN #1 bottle 07/31/17 08/01/17 Rx Review of System - Review of System 12 point system: reviewed and no additional remarkable complaints except as stated - Review of System Constitutional: Absent: fever Musculoskeletal: Present: leg pain (right leg) <Juan Manuel Viera R - Last Filed: 08/01/17 14:13> Medical,Surgical,& Family Hx - Medical History Cardio: History of: Aneurysm (abdominal), CHF, CAD, PR, Cardiovascular Problems (DR GUERIN) No history of: Cardiac Dysrhythmia, Cerebrovascular Disease, Congenital Heart Disease, Hypertension, Pacemaker, PVD, Valvular Heart Disease Neurology: History of: Cerebrovascular Accident, TIA No history of: Brain Aneurysm, Cerebral Hemorrhage, Cerebral Palsy, Dementia , Migraine, Multiple Sclerosis, Parkinson's Disease, Peripheral Neuropathy, Seizures, Vertigo, Neurologocal Cancer HEENT: History of: Eye Problem, Dental Problems (UPPER AND LOWER PARTIAL) Comment Only: Ear Problem ([place]) Endocrine: History of: Diabetes Mellitus (IDDM), Diabetes Mellitus (NIDDM), Dyslipidemia Rheumatology: History of;: Gout Respiratory: No history of: Asthma, Bronchitis, COPD, Intubation, Obstructive Sleep Apnea , Pulmonary Embolism, Pulmonary Hypertension, Pneumonia, Lung Cancer Comment Only: Respiratory Problems (FLU VAC- YES; PNEU VAC- YES.) Renal: History of: Renal Failure, Renal Problems Genitourinary: History of: Kidney Stones, Prostate Problems ([place]; DOUGIE COOMBS.) Gastrointestinal: History of: GERD, Polyps (REMOVED) No history of: Bowel Obstruction, Clostridium Difficile, Crohn's Disease, Diverticulitis/ Diverticulosis, Esophageal Varices Musculoskeletal: History of: Back/Neck Problems (LOWER BACK PAIN) Other: History of: Cancer (PROSTATE CANCER), Miscellaneous Medical Problems ([facility], [facility] H[facility]PITALIZIED 03/2016.) No history of: Anesthesia Reactions - Surgical History Cardiac Surgeries: Sugical HX of: Cardiac Catheterization (2015), Cardiac Surgery (CABG), Carotid Endarterectomy (right side) Patient Denies: Femoral-Popliteal Bypass Graft, Internal Defibrillator, Vascular Access Devices Thoracic Surgeries: Patient denies;: Lobectomy Neurologic Surgeries: Patient denies: Brain Aneurysm, Cerebral Hemorrhage, Neurologic Surgery HEENT Surgeries: Surgical HX of: Carotid Endarterectomy (right side), Eye Surgery (Cataract Surgery), Tonsilectomy & Adenoidectomy Abdominal Surgeries: Surgical HX of: Appendectomy, Cholecystectomy, Colonoscopy , EGD Patient denies: Splenectomy Reproductive Surgeries: Surgical HX of;: Prostate Surgery Orthopedic Surgeries: Surgical HX of;: Spinal Surgery (10/2016. INDIRA ADAMS.; BURNED SOME NERVES) - Family History Family History: Reports;: Family Heart Disease, Family Hypertension (dad), Family Stroke - Social History Smoking Status: Current every day smoker <Juan Manuel Viera - Last Filed: 08/01/17 14:13> Exam - General General appearance: alert, in no apparent distress - Head Head exam: Present: atraumatic, normocephalic - Eye Eye exam: Present: normal appearance, PERRL, EOMI - ENT ENT exam: Present: mucous membranes moist, TM's normal bilaterally. Absent: mucous membranes dry - Neck Neck exam: Present: full ROM, trachea midline. Absent: tenderness - Chest Chest inspection: Present: symmetric chest wall rise. Absent: tenderness - Respiratory Respiratory exam: Present: normal lung sounds bilaterally. Absent: respiratory distress - Cardiovascular Cardiovascular exam: Present: regular rate, normal rhythm, normal heart sounds. Absent: murmur, rubs, gallop - Abdominal Exam Abdominal exam: Present: soft, normal bowel sounds. Absent: distention, tenderness - Extremities Exam Extremities exam: Present: full ROM, tenderness (around popliteal area of right leg. Good Femoral pulse and fair dorsalis pedis ), pedal edema (+2), other ( right leg is swollen down to the knee and then +2 edema down to his foot. ) - Back Exam Back exam: Present: full ROM. Absent: tenderness - Neurological Exam Neurological exam: Present: alert, oriented X3, CN II-XII intact. Absent: motor sensory deficit - Psychiatric Psychiatric exam: Present: normal affect, normal mood - Skin Skin exam: Present: warm, dry, intact, normal color. Absent: rash <Juan Manuel Viera - Last Filed: 08/01/17 14:13> Vital Signs: Vital Signs Temperature 98.7 F 08/01/17 12:13 Pulse Rate 67 08/01/17 14:00 Respiratory Rate 20 08/01/17 14:00 Blood Pressure 137/70 08/01/17 14:00 O2 Sat by Pulse Oximetry 90 L 08/01/17 14:00 Course - Consultations Time: 13:56 Time: 14:13 <Juan Manuel Viera - Last Filed: 08/01/17 14:13> <Jama Santos - Last Filed: 08/01/17 15:58> - Consultations Consultation #1: Spoke to Dr. Joshi interventional radiologist suggested that we order a CT abdomen and pelvis with IV contrast to look for thrombus in the iliacs. Patient most likely has sluggish flow blood in the saphenous deep veins of the right leg versus a stagnant clot non-occlusive DVT (Juan Manuel Viera) Consultation #2: Signed out to Dr. Santos ER doctor assuming care of this patient CT scan of the abdomen and pelvis pending (Juan Manuel Viera) Results - Labs CBC & BMP: 08/01/17 12:51 08/01/17 12:51 <Juan Manuel Viera - Last Filed: 08/01/17 14:13> - Labs CBC & BMP: 08/01/17 12:51 08/01/17 12:51 Lab Results: I have reviewed the patients labs - Diagnostic Findings Procedure: CT Abdomen and Pelvis: report reviewed by me (see report), Ultrasound : report reviewed by me (see report) <Jama Santos - Last Filed: 08/01/17 15:58> Disposition <Juan Manuel Viera - Last Filed: 08/01/17 14:13> Case discussed with: patient <Jama Santos - Last Filed: 08/01/17 15:58> Clinical Impression: AV fistula, Leg swelling Disposition: Still a Patient Condition: Stable
[2017-08-01 13:01] LABS: Basophils % 0.4 % (0.0-0.8); Eosinophils # 0.1 10*3/uL (0.0-0.87); Eosinophils % 1.7 % (0.00-10.9); Hematocrit 36.2 VOL% (42.0-52.0); Hemoglobin 11.9 GM/DL (14.0-18.0); Immature Granulocytes % 0.6 %; Immature Granulocytes Absolute 0.03 #; Lymphocytes # 0.7 10*3/uL (1.4-4.0); Lymphocytes % 13.9 % (21.2-54.2); Mean Corpuscular HGB Conc 32.9 GM/DL (32-36); Mean Corpuscular Hemoglobin 27 PG (27-34); Mean Corpuscular Volume 83.2 FL (87-102); Mean Platelet Volume 11.6 FL (9.6-12.0); Monocytes # 0.5 10*3/uL (0.11-0.8); Monocytes % 11.2 % (1.7-12.7); Neutrophils # 3.5 10*3/uL (1.4-7.4); Neutrophils % 72.2 % (38.7-73.9); Platelet Count 111 T/CUMM (130-400); Red Blood Count 4.35 MC/CUMM (3.8-5.5); Red Cell Distribution Width 14.4 % (9.3-17.3); White Blood Count 4.8 T/CUMM (4-12)
[2017-08-01 13:20] LABS: INR 1.1; PT Patient Result 12.2 SECS
[2017-08-01 13:38] LABS: Albumin 3.4 G/DL (3.4-5.0); Bilirubin,Total 1.4 MG/DL (0.2-1.0); Calcium 9.6 MG/DL (8.5-10.1); Magnesium 2.3 MG/DL (1.8-2.4); Potassium 4.4 MMOL/L (3.5-5.1)
--- NOTE | 2017-08-01 13:59 | Ultrasound Report ---
US venous doppler LE RT Clinical Information: Right groin pain swelling following cardiac catheterization Comparison: Prior arterial Doppler ultrasound 07/31/2017 Technique: Targeted ultrasound evaluation of the right lower extremity with color Doppler and spectral analysis of the major venous structures was performed. Findings: Initial evaluation demonstrates no significant flow within the right common and superficial femoral veins. There is also no compressibility of these vessels. However, with augmentation, flow is visualized within these vessels, suggesting severely stagnated but not completely clotted blood. The popliteal vein however demonstrates flow without augmentation and is compressible. Cine/video images suggest very sluggish blood flow within the common femoral vein. Impression: Findings are most compatible with nonocclusive thrombus within the common and superficial femoral veins. Critical findings and recommendations discussed with Dr. Viera via telephone at 1:56 PM on the day of the examination PROCEDURE INTERPRETED AT [facility] DEPARTMENT OF RADIOLOGY Final Report Signed by: Jesus Joshi
[2017-08-01] MEDS ORDERED: MORPHINE 2 MG/1 ML SYRINGE IV PRN (15:44)
[2017-08-01] MEDS ORDERED: ONDANSETRON 4 MG/2 ML VIAL IV PRN (15:44)
[2017-08-01] MEDS ORDERED: MAGNESIUM SULF RIDER 2 GM in PREMIX 1 EACH IV PRN (15:44)
[2017-08-01] MEDS ORDERED: MAGNESIUM SULF RIDER 4 GM in PREMIX 1 EACH IV PRN (15:44)
--- NOTE | 2017-08-01 15:45 | CT Report ---
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 All CT scans at this facility use one or more dose reduction techniques. Automated exposure control, MA/KV adjustment per patient size (including targeted exam Square dose is matched to indication) or iterative reconstruction technique Contrast: 100 mL of Omnipaque 350 administered intravenously Comparison: March 14, 2017 Findings: Lower thorax: Marked four-chamber cardiac enlargement with reflux contrast into the hepatic veins. Cannot exclude some degree of right heart failure Abdomen: Liver: Normal Gallbladder and bile ducts: Prior cholecystectomy. No ductal dilatation. Pancreas: Pancreas is normal. Spleen: Spleen is normal. Trace subcapsular fluid is noted. Adrenals: Hyperplastic and somewhat nodular. Kidneys and ureters: Cortical atrophy with simple appearing cyst. Nonobstructing bilateral calyceal stones are noted Stomach and bowel: No evidence of acute gastritis, colitis or enteritis. No bowel obstruction. Moderate stool dispersed throughout the colon. Appendix: No secondary signs to suggest appendicitis. Pelvis: Bladder: Unremarkable Reproductive: Unremarkable as visualized. 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 No findings to suggest endoleak. Extensive plaquing and luminal irregularity involving the right external iliac artery, profunda and right superficial femoral arteries. Hyperenhancing communication from the proximal profundus with the common femoral vein at the inguinal ligament by small feeder vessel. Venous hyperenhancement is isolated to short segment. The more proximal vessel appears somewhat engorged and associated with stranding soft tissue density extending into the right lower quadrant and lower pelvis. Atheromatous plaquing along the left external iliac and femoral arteries. Luminal irregularity with no high-grade stenosis. Impression: 1. 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 2. Short segment venous enhancement at the fistula site, prominence of the external iliac artery and right lower quadrant stranding raises concern for possible iliac venous thrombosis. Conventional angiography is suggested to further evaluate 3. Bilateral nephrolithiasis 4. Small splenic subcapsular fluid collection, attention on follow-up examination 5. Stable aortobiiliac graft with no evidence of endoleak PROCEDURE INTERPRETED AT [facility] DEPARTMENT OF RADIOLOGY Final Report Signed by: Viet Preciado
--- NOTE | 2017-08-01 15:51 | Cardiology History & Physical ---
Assessment and Plan (1) AV fistula Status: Acute Current Visit: Yes (2) Hypertension Status: Chronic Current Visit: Yes (3) Anticoagulation management encounter Status: Acute Current Visit: Yes (4) Renal insufficiency Problem details: Chronic kidney disease stage III Status: Chronic Current Visit: No (5) Chronic a-fib Status: Chronic Current Visit: No (6) Coronary artery disease Status: Chronic Current Visit: No (7) Diabetes mellitus type 2 with complications Status: Chronic Current Visit: No (8) Ischemic cardiomyopathy Status: Chronic Current Visit: No (9) Status post aorto-coronary artery bypass graft Status: Chronic Current Visit: No History of Present Illness Chief complaint: Right leg pain History of present illness: The patient is evaluated in the emergency room EMERGENCY MEDICAL TECHNICIAN BASIC: Dr. Chaka Guerin Mr. Braun is a 76-year-old WM with history of CAD, ischemic cardio myopathy, hypertension, diabetes mellitus, peripheral vascular disease. Status post three -vessel CABG November 1995 with PEREZ to LAD, vein graft to diagonal and vein graft to RCA. He is status post mid RCA stent May 26, 2014. The patient was just admitted to the hospital and discharged yesterday. He was having worsening chest discomfort and shortness of breath. Cardiac catheterization commenced on Sunday, July 30, 2017 demonstrating a patent left main trunk, patent circumflex system, moderate LAD disease with a patent PEREZ to LAD, dominant right coronary artery with patent mid vessel stent, occluded posterior LV branch, patent PDA, occluded SVG to RCA, occluded SVG to diagonal artery, and abdominal aortogram demonstrating widely patent endovascular stent as well as patent bilateral iliac artery stents although more peripheral stenosis was noted. He has a history of this abdominal aortic endograft stenting and left common iliac artery repair earlier this year by Dr. Mata as well as carotid endarterectomy. Pertinent noncardiac history includes history of erosive gastritis diagnosed by EGD April 2017, repeat EGD May 2017 showing near complete resolution of his esophagitis. He also has a history of prostate cancer diagnosed 2004 status post prostatectomy, and chronic persistent atrial fibrillation. He was evaluated by me yesterday prior to discharge, and he was noted to have an adequate right femoral pulse with no bruit, and adequate left femoral pulse although a left femoral bruit was noted. Vascular ultrasound of the left groin was performed which did not demonstrate any significant post-cath complication, and the patient was discharged home. He had newly diagnosed atrial fibrillation and was discharged home on Eliquis. Yesterday evening and today he began to notice right thigh and lower extremity swelling. He has some discomfort in the right groin area, and a new bruit that was not present yesterday. His daughter is present and tells me that yesterday he could wear his right how shoe, but today he cannot because of his lower extremity swelling. He has an abnormal right femoral vein Doppler and an abnormal abdominal CT. Review of his angiography performed 2 days ago reveals that a 6 Yi sheath was placed in a manner that appears to be through the femoral artery and possibly into the interstitial space. The tracing lathe set up operator was unable to pass his guidewire so the procedure was transitioned to a left-sided approach. He is not having any fevers, chills, presyncope or syncope. His breathing is unchanged. He has some chronic arthralgias and limited mobility, the remainder of his 12 point review of systems is otherwise negative in detail. Impression and plan: 1. Vascular complications status post left heart catheterization- The patient may have developed an AV fistula, may be having some hemorrhage, and possibly has a component including a right femoral DVT. Review of his cath film demonstrates unusual cannulation of the right femoral artery and attempts at a right femoral approach for his left heart catheterization performed by the tracing lathe set up operator. I am going to withhold his anticoagulation until he gets evaluated by Dr. Mata. 2. Coronary artery disease-he is status post cardiac catheterization on July 30, 2017 demonstrating disease as described above. Clinically this is stable. 3. Ischemic cardiomyopathy-he is not in overt failure today. 4. Chronic persistent atrial fibrillation-we will ultimately required anticoagulation. 5. Hypertension-chronic. 6. Diabetes mellitus-chronic. 7. Renal insufficiency-chronic, stable. I personally discussed this case at length with Dr. Mata, reviewed the patient' s recent catheterization film and CT. Dr. Mata is going to evaluate the patient for possible exploration and repair of suspected AV fistula. Home Medications Medication Instructions Recorded Confirmed Type Allopurinol 25 mg PO DAILY 04/07/16 08/01/17 History Clopidogrel [Plavix] 75 mg PO QAM 04/07/16 08/01/17 History Furosemide Tab [Lasix Tab] 40 mg PO BID 04/07/16 08/01/17 History Potassium Chloride [Klor-Con 10] 10 meq PO QID 01/31/17 08/01/17 History Insulin Lispro [HumaLOG] 1 unit SUBCUT BID PRN 02/06/17 08/01/17 History Multivitamin [Multivitamins] 1 tablet PO DAILY 02/06/17 08/01/17 History Potassium Citrate [Urocit K] 20 meq PO BID 02/06/17 08/01/17 History Pantoprazole Tab [Protonix Tab] 40 mg PO BID #60 tablet 04/30/17 08/01/17 Rx Calcium Carbonate/Vitamin D3 1 each PO DAILY 07/28/17 08/01/17 History [Calcium 600-Vit D3 800 Tablet] Carvedilol 6.25 mg PO BID 07/28/17 08/01/17 History Isosorbide Mononitrate [Isosorbide 60 mg PO BID 07/28/17 08/01/17 History Mononitrate ER] Trazodone HCl 100 mg PO BEDTIME 07/28/17 08/01/17 History Apixaban [Eliquis] 2.5 mg PO BID #60 tablet 07/31/17 08/01/17 Rx Aspirin EC Tab 81 mg PO DAILY #30 tablet 07/31/17 08/01/17 Rx Atorvastatin [Lipitor] 40 mg PO BEDTIME #30 tablet 07/31/17 08/01/17 Rx Nitroglycerin Sl Tab [Nitrostat] 0.4 mg SL Q5M PRN #1 bottle 07/31/17 08/01/17 Rx Allergies Allergy/AdvReac Type Severity Reaction Status Date / Time codeine Allergy Intermediate ITCHING Verified 06/11/17 08:51 12 point system: reviewed and no additional remarkable complaints except as stated Medical,Surgical,& Family Hx - Medical History Cardio: History of: Aneurysm (abdominal), CHF, CAD, [place], Cardiovascular Problems (DR GUERIN) No history of: Cardiac Dysrhythmia, Cerebrovascular Disease, Congenital Heart Disease, Hypertension, Pacemaker, PVD, Valvular Heart Disease Neurology: History of: Cerebrovascular Accident, TIA No history of: Brain Aneurysm, Cerebral Hemorrhage, Cerebral Palsy, Dementia , Migraine, Multiple Sclerosis, Parkinson's Disease, Peripheral Neuropathy, Seizures, Vertigo, Neurologocal Cancer HEENT: History of: Eye Problem, Dental Problems (UPPER AND LOWER PARTIAL) Comment Only: Ear Problem ([place]) Endocrine: History of: Diabetes Mellitus (IDDM), Diabetes Mellitus (NIDDM), Dyslipidemia Rheumatology: History of;: Gout Respiratory: No history of: Asthma, Bronchitis, COPD, Intubation, Obstructive Sleep Apnea , Pulmonary Embolism, Pulmonary Hypertension, Pneumonia, Lung Cancer Comment Only: Respiratory Problems (FLU VAC- YES; PNEU VAC- YES.) Renal: History of: Renal Failure, Renal Problems Genitourinary: History of: Kidney Stones, Prostate Problems ([place]; DOUGIE COOMBS.) Gastrointestinal: History of: GERD, Polyps (REMOVED) No history of: Bowel Obstruction, Clostridium Difficile, Crohn's Disease, Diverticulitis/ Diverticulosis, Esophageal Varices Musculoskeletal: History of: Back/Neck Problems (LOWER BACK PAIN) Other: History of: Cancer (PROSTATE CANCER), Miscellaneous Medical Problems ([facility] No history of: Anesthesia Reactions - Surgical History Cardiac Surgeries: Sugical HX of: Cardiac Catheterization (2015), Cardiac Surgery (CABG), Carotid Endarterectomy (right side) Patient Denies: Femoral-Popliteal Bypass Graft, Internal Defibrillator, Vascular Access Devices Thoracic Surgeries: Patient denies;: Lobectomy Neurologic Surgeries: Patient denies: Brain Aneurysm, Cerebral Hemorrhage, Neurologic Surgery HEENT Surgeries: Surgical HX of: Carotid Endarterectomy (right side), Eye Surgery (Cataract Surgery), Tonsilectomy & Adenoidectomy Abdominal Surgeries: Surgical HX of: Appendectomy, Cholecystectomy, Colonoscopy , EGD Patient denies: Splenectomy Reproductive Surgeries: Surgical HX of;: Prostate Surgery Orthopedic Surgeries: Surgical HX of;: Spinal Surgery (10/2016. [facility] BURNED SOME NERVES) - Family History Family History: Reports;: Family Heart Disease, Family Hypertension (dad), Family Stroke - Social History Smoking Status: Current every day smoker Frequency of Alcohol Use: None Marital Status: Lives With:: Spouse Functional capacity: uses cane/walker Cardiology Physical Exam - Constitutional Vitals: Vital Signs Temp Pulse Resp BP Pulse Ox 98.7 F 67 20 137/70 90 L 08/01/17 12:13 08/01/17 14:00 08/01/17 14:00 08/01/17 14:00 08/01/17 14:00 Intake and Output 07/31/17 08/01/17 08/01/17 23:59 07:59 15:59 Other: Weight 107.048 kg Patient Weight 08/01/17 23:59 Weight 107.048 kg Exam: General appearance: normal weight, no acute distress - Head Head exam: Present: normal inspection, normocephalic, atraumatic. Absent: hematoma, laceration - Eye Eye exam: Present: EOMI. Absent: conjunctival injection, nystagmus, periorbital swelling, scleral icterus, laceration to eyelids Pupils: Present: PERRL. Absent: constricted, dilated, fixed, irregular, unequal - ENT ENT exam: Present: normal exam, normal external ear exam - Neck Neck exam: Present: normal inspection. Absent: lymphadenopathy, meningismus, tenderness, thyromegaly - Respiratory Respiratory exam: Present: clear to auscultation bilaterally. Absent: accessory muscle use, chest wall tenderness - Cardiovascular Cardiovascular exam: Present: Irregularly irregular rate and rhythm. Absent: carotid bruit, gallop, JVD, rubs - GI/Abdominal GI/Abdominal exam: Present: normal bowel sounds, soft. Absent: distended, firm , guarding, hernia, mass, tenderness, rebound. - Extremities Exam Extremities exam: Present: There are bilateral femoral bruits. The right bruits new compared to yesterday, and there is prominent pulsation. Distal pulses are weak. The right lower extremity, including the thigh and calf are edematous and larger than the left, and a new finding from examination yesterday. - Back Exam Back exam: Present: normal inspection. Absent: muscle spasm, vertebral tenderness - Neurological Exam Neurological exam: Present: alert, oriented X3, grossly intact without resting or intention tremor - Psychiatric Psychiatric exam: Present: normal affect, normal mood - Skin Skin exam: Present: normal color, warm, dry, intact. Absent: cyanosis, diaphoretic, rash, urticaria Result/EKG - Labs CBC & BMP: 08/01/17 12:51 08/01/17 12:51 Lab Results: I have reviewed the past 24 hour labs Labs: Laboratory Results - last 24 hr 08/01/17 08/01/17 08/01/17 12:51 12:51 12:51 WBC 4.8 RBC 4.35 Hgb 11.9 L Hct 36.2 L MCV 83.2 L MCH 27 MCHC 32.9 RDW 14.4 Plt Count 111 L MPV 11.6 Neut % (Auto) 72.2 Lymph % (Auto) 13.9 L [place] % (Auto) 11.2 Eos % (Auto) 1.7 Baso % (Auto) 0.4 Neut # (Auto) 3.5 Lymph # (Auto) 0.7 L [place] # (Auto) 0.5 Eos # (Auto) 0.1 Baso # (Auto) 0.0 Immature Gran % 0.6 Nucleated RBC % 0.0 Immature Gran # 0.03 Nucleated RBCs # 0.00 Immature Plt Fraction 0.0 INR 1.1 PT Patient/Control Mix 12.2 Sodium 136 Potassium 4.4 Chloride 102 Carbon Dioxide 31 Anion Gap 7.4 BUN 24 H Creatinine 1.60 H GFR Calculation 54 BUN/Creatinine Ratio 15.00 Glucose 176 H Calculated Osmolality 279.0 Calcium 9.6 Magnesium 2.3 Total Bilirubin 1.40 H AST 14 ALT 18 Alkaline Phosphatase 77 Total Protein 7.0 Albumin 3.4 Globulin 3.6 H Albumin/Globulin Ratio 0.9 L - Diagnostic Findings Procedure: CT Abdomen and Pelvis: report reviewed by me, image reviewed by me, Ultrasound: report reviewed by me
[2017-08-01] MEDS ORDERED: NITROGLYCERIN SL 0.4 MG TABLET SL PRN (16:43)
--- NOTE | 2017-08-01 17:09 | Vascular Surgery Consult Note ---
History of Present Illness Chief complaint: right femoral av fistula History of present illness: Mr. Braun is a 76 year old male Jaren Braun is a 76-year-old man I have known and treated for many years. 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 He is now developed significant swelling and discomfort in the right leg venous Doppler suggest poor flow in the leg but does not clearly identify thrombus however CT angiogram or CT with dye has demonstrated what appears to be an AV fistula at the right femoral artery. My suspicion is that Mr. Braun does have AV fistula following the attempted right sided femoral approach for the cardiac catheterization. This is resulting in venous hypertension as I really cannot identify thrombus on the CT scan. I discussed the findings with Dr. Marie Victoria and subsequently with Mr. Braun and his daughter and I think the best approach will be an exploration with repair of the AV fistula of the right femoral artery. I explained how this would be done the potential for requiring thrombectomy infection bleeding and continued swelling of the legs which they understand and accept and we will schedule that for tomorrow morning Home Medications Medication Instructions Recorded Confirmed Type Allopurinol 25 mg PO DAILY 04/07/16 08/01/17 History Clopidogrel [Plavix] 75 mg PO QAM 04/07/16 08/01/17 History Furosemide Tab [Lasix Tab] 40 mg PO BID 04/07/16 08/01/17 History Potassium Chloride [Klor-Con 10] 10 meq PO QID 01/31/17 08/01/17 History Insulin Lispro [HumaLOG] 1 unit SUBCUT BID PRN 02/06/17 08/01/17 History Multivitamin [Multivitamins] 1 tablet PO DAILY 02/06/17 08/01/17 History Potassium Citrate [Urocit K] 20 meq PO BID 02/06/17 08/01/17 History Pantoprazole Tab [Protonix Tab] 40 mg PO BID #60 tablet 04/30/17 08/01/17 Rx Calcium Carbonate/Vitamin D3 1 each PO DAILY 07/28/17 08/01/17 History [Calcium 600-Vit D3 800 Tablet] Carvedilol 6.25 mg PO BID 07/28/17 08/01/17 History Isosorbide Mononitrate [Isosorbide 60 mg PO BID 07/28/17 08/01/17 History Mononitrate ER] Trazodone HCl 100 mg PO BEDTIME 07/28/17 08/01/17 History Apixaban [Eliquis] 2.5 mg PO BID #60 tablet 07/31/17 08/01/17 Rx Aspirin EC Tab 81 mg PO DAILY #30 tablet 07/31/17 08/01/17 Rx Atorvastatin [Lipitor] 40 mg PO BEDTIME #30 tablet 07/31/17 08/01/17 Rx Nitroglycerin Sl Tab [Nitrostat] 0.4 mg SL Q5M PRN #1 bottle 07/31/17 08/01/17 Rx Allergies Allergy/AdvReac Type Severity Reaction Status Date / Time codeine Allergy Intermediate ITCHING Verified 06/11/17 08:51 Medical,Surgical,& Family Hx - Medical History Cardio: History of: Aneurysm (abdominal), CHF, CAD, [place], Cardiovascular Problems (DR HARTMAN) No history of: Cardiac Dysrhythmia, Cerebrovascular Disease, Congenital Heart Disease, Hypertension, Pacemaker, PVD, Valvular Heart Disease Neurology: History of: Cerebrovascular Accident, TIA No history of: Brain Aneurysm, Cerebral Hemorrhage, Cerebral Palsy, Dementia , Migraine, Multiple Sclerosis, Parkinson's Disease, Peripheral Neuropathy, Seizures, Vertigo, Neurologocal Cancer HEENT: History of: Eye Problem, Dental Problems (UPPER AND LOWER PARTIAL) Comment Only: Ear Problem ([place]) Endocrine: History of: Diabetes Mellitus (IDDM), Diabetes Mellitus (NIDDM), Dyslipidemia Rheumatology: History of;: Gout Respiratory: No history of: Asthma, Bronchitis, COPD, Intubation, Obstructive Sleep Apnea , Pulmonary Embolism, Pulmonary Hypertension, Pneumonia, Lung Cancer Comment Only: Respiratory Problems (FLU VAC- YES; PNEU VAC- YES.) Renal: History of: Renal Failure, Renal Problems Genitourinary: History of: Kidney Stones, Prostate Problems ([place]; DOUGIE COOMBS.) Gastrointestinal: History of: GERD, Polyps (REMOVED) No history of: Bowel Obstruction, Clostridium Difficile, Crohn's Disease, Diverticulitis/ Diverticulosis, Esophageal Varices Musculoskeletal: History of: Back/Neck Problems (LOWER BACK PAIN) Other: History of: Cancer (PROSTATE CANCER), Miscellaneous Medical Problems ([facility] No history of: Anesthesia Reactions - Surgical History Cardiac Surgeries: Sugical HX of: Cardiac Catheterization (2015), Cardiac Surgery (CABG), Carotid Endarterectomy (right side) Patient Denies: Femoral-Popliteal Bypass Graft, Internal Defibrillator, Vascular Access Devices Thoracic Surgeries: Patient denies;: Lobectomy Neurologic Surgeries: Patient denies: Brain Aneurysm, Cerebral Hemorrhage, Neurologic Surgery HEENT Surgeries: Surgical HX of: Carotid Endarterectomy (right side), Eye Surgery (Cataract Surgery), Tonsilectomy & Adenoidectomy Abdominal Surgeries: Surgical HX of: Appendectomy, Cholecystectomy, Colonoscopy , EGD Patient denies: Splenectomy Reproductive Surgeries: Surgical HX of;: Prostate Surgery Orthopedic Surgeries: Surgical HX of;: Spinal Surgery (10/2016. [facility].; BURNED SOME NERVES) - Family History Family History: Reports;: Family Heart Disease, Family Hypertension (dad), Family Stroke - Social History Smoking Status: Current every day smoker Frequency of Alcohol Use: None Type of Drug Use: None Exam - Constitutional Vitals: Period Temp Pulse Resp BP Sys/Real Pulse Ox Last 24 Hr 98.7 F-98.7 F 54-68 18-20 117-167/57-83 90-100 Results - Labs CBC & BMP: 08/01/17 12:51 08/01/17 12:51
[2017-08-01] MEDS ORDERED: DEXTROSE 50% 25 GM/50 ML SYRINGE IV PRN (17:11)
[2017-08-01] MEDS ORDERED: GLUCAGON 1 MG VIAL IM PRN (17:11)
[2017-08-01] MEDS: FUROSEMIDE 40 MG TABLET PO SCH (17:36)
[2017-08-01] MEDS: POTASSIUM CHLORIDE 10 MEQ TABLET PO SCH ×2 (17:36→21:43)
--- NOTE | 2017-08-01 18:13 | Event Note ---
I reevaluated the patient upon arrival to the floor. He is comfortable, continues to have right lower extremity edema. He has already been evaluated by Dr. Woodward. I again reiterated the plan as I understand it after my discussions with Dr. Mata.
[2017-08-01] MEDS: POTASSIUM CITRATE 10 MEQ TABLET PO SCH (21:43)
[2017-08-01] MEDS: traZODone 50 MG TABLET PO SCH (21:43)
[2017-08-01] MEDS: ISOSORBIDE MONONITRATE 60 MG TABLET PO SCH (21:43)
[2017-08-01] MEDS: CARVEDILOL 6.25 MG TABLET PO SCH (21:43)
[2017-08-01] MEDS: ATORVASTATIN 40 MG TABLET PO SCH (21:43)
[2017-08-02 05:47] LABS: Basophils % 0.6 % (0.0-0.8); Eosinophils # 0.1 10*3/uL (0.0-0.87); Eosinophils % 2.7 % (0.00-10.9); Hematocrit 33.8 VOL% (42.0-52.0); Hemoglobin 11.3 GM/DL (14.0-18.0); Immature Granulocytes % 0.4 %; Immature Granulocytes Absolute 0.02 #; Lymphocytes # 0.8 10*3/uL (1.4-4.0); Lymphocytes % 16.2 % (21.2-54.2); Mean Corpuscular HGB Conc 33.4 GM/DL (32-36); Mean Corpuscular Hemoglobin 28 PG (27-34); Mean Corpuscular Volume 82.2 FL (87-102); Mean Platelet Volume 11.7 FL (9.6-12.0); Monocytes # 0.6 10*3/uL (0.11-0.8); Neutrophils # 3.2 10*3/uL (1.4-7.4); Neutrophils % 68.1 % (38.7-73.9); Platelet Count 106 T/CUMM (130-400); Red Blood Count 4.11 MC/CUMM (3.8-5.5); Red Cell Distribution Width 14.4 % (9.3-17.3); White Blood Count 4.7 T/CUMM (4-12)
[2017-08-02 06:03] LABS: Calcium 9.2 MG/DL (8.5-10.1); Magnesium 2.3 MG/DL (1.8-2.4); Osmolality,Calculated 284.5 MOS/KG (273-304)
[2017-08-02] MEDS ORDERED: HEPARIN 5,000 UNIT/1 ML VIAL ONE (06:37)
[2017-08-02] MEDS ORDERED: THROMBIN TOPICAL (RECOMBINANT) 5,000 UNIT VIAL TOP ONE (06:37)
[2017-08-02] MEDS ORDERED: VANCOMYCIN 1,000 MG VIAL ONE (06:38)
[2017-08-02] MEDS: FUROSEMIDE 40 MG TABLET PO SCH ×2 (08:00→16:46)
[2017-08-02] MEDS: POTASSIUM CHLORIDE 10 MEQ TABLET PO SCH ×4 (08:00→21:07)
[2017-08-02] MEDS: CARVEDILOL 6.25 MG TABLET PO SCH ×2 (08:00→21:07)
[2017-08-02] MEDS: PANTOPRAZOLE 40 MG TABLET PO SCH ×2 (08:00→21:07)
[2017-08-02] MEDS ORDERED: ceFAZolin 2,000 MG in PREMIX 1 EACH IV ONE (08:00)
[2017-08-02] MEDS: MULTIVITAMIN (CENTRUM) TABLET PO SCH ×2 (08:00→13:09)
[2017-08-02] MEDS: ISOSORBIDE MONONITRATE 60 MG TABLET PO SCH ×2 (08:00→21:04)
[2017-08-02] MEDS: ALLOPURINOL 100 MG TABLET PO SCH ×2 (08:01→13:09)
[2017-08-02] MEDS: CALCIUM (CARBONATE)/VITAMIN D 600 MG-400 UNIT TABLET PO SCH ×2 (08:01→13:10)
[2017-08-02] MEDS: POTASSIUM CITRATE 10 MEQ TABLET PO SCH ×2 (08:01→21:04)
[2017-08-02] MEDS: LACTATED RINGERS 1,000 ML IV SCH ×2 (08:54→09:31)
[2017-08-02] MEDS ORDERED: SODIUM CHLORIDE 0.9% 250 ML IV PRN (09:50)
[2017-08-02] MEDS ORDERED: TISSUE ADHESIVE 1 EACH APPLICATOR TOP ONE (10:23)
[2017-08-02] MEDS ORDERED: HYDROmorphone 2 MG/1 ML VIAL IV PRN (10:29)
[2017-08-02] MEDS ORDERED: ONDANSETRON 4 MG/2 ML VIAL IV PRN (10:29)
--- NOTE | 2017-08-02 10:41 | Operative Note ---
Date of procedure: 08/02/17 Procedure: Dr. Mata operative report Jaren Kade Surgeon: Esperanza Anesthesia: Dayanna general endotracheal Preoperative diagnosis: Right femoral arterial venous fistula Postoperative diagnosis: Same Procedure: Repair of right femoral arterial venous fistula with thrombectomy of the right femoral vein. Indications for the procedure: Mr. Braun is 76-year-old man has developed a right femoral arterial venous fistula following cardiac catheterization there is also question of thrombus within the right femoral vein I have recommended exploration with repair of the arterial venous fistula of explained the alternatives risks and complications which he and his family understand and accept Description of the procedure: After the induction of general endotracheal anesthesia the patient's was placed in supine position padding all pressure points to his lower abdomen and groins and thighs were prepped with ChloraPrep and Ioban draped in usual fashion patient had a right femoral cutdown for endovascular repair of an abdominal aortic aneurysm earlier this year I went through the same incision and then dissected down into the femoral canal there was a good bit of fresh hemorrhage in the area noted 6 significant venous hypertension and area requiring 3-0 silk suture ligatures to control several of the veins such as the inferior epigastric. Continued dissecting down to the common femoral artery and then working my way under the inguinal ligament bluntly I was able to dissect around the external iliac artery and control this with a maxi vessel loop I then encountered bleeding from the posterior wall of the artery just at the junction of the external iliac and common femoral vein was noted medially and was distended was able to control it distally with a cry for clamp. Using compression I was able to locate the area of the fistula then sutured this with pledgeted 5-0 Prolene sutures getting complete control of the fistula and the active bleeding from the posterior arterial wall. I then was concerned about thrombus in the femoral vein respiratory variation and compression accentuation. Patient had received 5000 units of heparin which I left on reverse there was good Doppler flow in the femoral and external iliac artery with no evidence of an AV fistula I irrigated copiously placed Surgicel and then Tisseel and the entire area irrigated closed with 2 layers running 2-0 Monocryl 4 Monocryl subcuticular glue lesion the procedure the patient's toes were pink he had not had palpable pedal pulses prior did not at this point blood loss is estimated at 400 cc sponge needle and his counts are correct and the patient is stable and taken to recovery I controlled with Vesseloops opened horizontally and noted there was in fact some thrombus I was able to pass a Abigail catheter proximally but could not pass all the way into the inferior vena cava feel that this may be actually compression associated with the previously done endograft there was minimal black bleeding there was able to get distally a bit with minimal thrombus and good forward bleeding I closed the venotomy with running 5-0 Prolene suture and had reasonably good flow in the femoral vein with Surgeon / Physician: Ender Mata Results - Labs CBC & BMP: 08/02/17 05:34 08/02/17 05:34 Discharge Plan - Discharge Medications No Action Furosemide Tab [Lasix Tab] 40 mg PO BID Allopurinol 25 mg PO DAILY Clopidogrel [Plavix] 75 mg PO QAM Potassium Citrate [Urocit K] 20 meq PO BID Multivitamin [Multivitamins] 1 tablet PO DAILY Isosorbide Mononitrate [Isosorbide Mononitrate ER] 60 mg PO BID Carvedilol 6.25 mg PO BID Calcium Carbonate/Vitamin D3 [Calcium 600-Vit D3 800 Tablet] 1 each PO DAILY Apixaban [Eliquis] 2.5 mg PO BID #60 tablet Aspirin EC Tab 81 mg PO DAILY #30 tablet Nitroglycerin Sl Tab [Nitrostat] 0.4 mg SL Q5M PRN #1 bottle PRN Reason: Chest Pain Potassium Chloride [Klor-Con 10] 10 meq PO QID Insulin Lispro [HumaLOG] 1 unit SUBCUT BID PRN PRN Reason: diabetes Pantoprazole Tab [Protonix Tab] 40 mg PO BID #60 tablet Trazodone HCl 100 mg PO BEDTIME Atorvastatin [Lipitor] 40 mg PO BEDTIME #30 tablet - Follow Up or Referral - Forms/Instructions
--- NOTE | 2017-08-02 10:52 | Anesthesia Post-Op ---
Anesthesia Post OP - Post Ansesthetic Evaluation Patient seen in post op: Yes Resp: within normal limits CV: within normal limits Mental: within normal limits Temp: within normal limits [id number]: within normal limits Nausea and Vomiting: within normal limits Pain: within normal limits
[2017-08-02 10:57] LABS: Hemoglobin 10.4 GM/DL (14.0-18.0)
[2017-08-02] MEDS ORDERED: fentaNYL 100 MCG/2 ML VIAL ONE (11:33)
[2017-08-02] MEDS ORDERED: SEVOFLURANE 1 UNIT/15 MINUTE INH ONE (11:33)
[2017-08-02] MEDS ORDERED: LACTATED RINGERS 2,000 ML IV ONE (11:34)
[2017-08-02] MEDS ORDERED: ACETAMINOPHEN 1,000 MG/100 ML VIAL IV ONE (11:34)
[2017-08-02] MEDS ORDERED: ePHEDrine 50 MG/ML AMP ONE (11:34)
[2017-08-02] MEDS: ASPIRIN CHEW 81 MG TABLET PO SCH ×2 (12:03→13:09)
--- NOTE | 2017-08-02 15:59 | Cardiology Progress Note ---
<Krystal Hodge - Last Filed: 08/02/17 16:00> Assessment and Plan (1) AV fistula Status: Resolved Assessment and plan: SEE PLAN OF CARE LISTED BELOW. Current Visit: Yes (2) Anticoagulation management encounter Status: Acute Assessment and plan: SEE PLAN OF CARE LISTED BELOW. Current Visit: Yes (3) Hypertension Status: Chronic Assessment and plan: SEE PLAN OF CARE LISTED BELOW. Current Visit: Yes (4) Chronic a-fib Status: Chronic Assessment and plan: SEE PLAN OF CARE LISTED BELOW. Current Visit: No (5) Coronary artery disease Status: Chronic Assessment and plan: SEE PLAN OF CARE LISTED BELOW. Current Visit: No (6) Diabetes Status: Chronic Assessment and plan: SEE PLAN OF CARE LISTED BELOW. Current Visit: No (7) Ischemic cardiomyopathy Status: Chronic Assessment and plan: SEE PLAN OF CARE LISTED BELOW. Current Visit: No (8) Renal insufficiency Problem details: Chronic kidney disease stage III Status: Chronic Assessment and plan: SEE PLAN OF CARE LISTED BELOW. Current Visit: No (9) Status post aorto-coronary artery bypass graft Status: Chronic Assessment and plan: SEE PLAN OF CARE LISTED BELOW. Current Visit: No Cardiology - PN: Subj Interval history: ELEMENTARY CLASSROOM TEACHER: Dr. Chaka Guerin SUMMARY Mr. Braun is a 76-year-old WM with history of CAD, ischemic cardio myopathy, hypertension, diabetes mellitus, peripheral vascular disease. Status post three -vessel CABG November 1995 with PEREZ to LAD, vein graft to diagonal and vein graft to RCA. He is status post mid RCA stent May 26, 2014. The patient was just admitted to the hospital and discharged earlier this week. He was having worsening chest discomfort and shortness of breath. Cardiac catheterization commenced on Sunday, July 30, 2017 demonstrating a patent left main trunk, patent circumflex system, moderate LAD disease with a patent PEREZ to LAD, dominant right coronary artery with patent mid vessel stent, occluded posterior LV branch, patent PDA, occluded SVG to RCA, occluded SVG to diagonal artery, and abdominal aortogram demonstrating widely patent endovascular stent as well as patent bilateral iliac artery stents although more peripheral stenosis was noted. 2016 Patient was seen and examined on the telemetry unit. He underwent surgical repair of his right femoral arterial venous fistula today per Dr. Mata. He tolerated this procedure well. He is without complaints of chest pain, heaviness or tightness. Right groin is stable. Distal pulses present. H&H is stable at 10.4 and 31.0. Vital signs are stable. Labs been reviewed. He remains in atrial fibrillation, this is chronic. Rate controlled on current regimen. Will reinitiate Eliquis tomorrow morning. Lovenox will be discontinued tomorrow. I will further discuss with Dr. Victoria and await her additional recommendations. Patient may be eligible for discharge home tomorrow if he continues to do well. IMPRESSION AND PLAN: 1. RIGHT FEMORAL ARTERIAL VENOUS FISTULA - The patient developed an AV fistula , status post catheterization. Dr. Mata was consulted and he underwent surgical repair today. Patient is doing well postoperatively. Continue current plan of care. 2. CORONARY ARTERY DISEASE - He is status post cardiac catheterization on July 30, 2017 demonstrating disease as described above. Clinically this is stable. 3. ISCHEMIC CARDIOMYOPATHY - Without overt heart failure. Patient is on good medication regimen. 4. CHRONIC PERSISTENT ATRIAL FIBRILLATION - Will reinitiate Eliquis tomorrow. Rate controlled. 5. HYPERTENSION - Chronic. Well controlled. 6. DIABETES MELLITUS - Chronic. Sliding scale insulin. 7. RENAL INSUFFICIENCY - Chronic, stable. Exam (Progress Note) - Constitutional Vitals: Period Temp Pulse Resp BP Sys/Real Pulse Ox Last 24 Hr 97.7 F-100.0 F 55-112 16-20 109-167/49-79 95-100 Exam: General appearance: normal weight, no acute distress - Head Head exam: Present: normal inspection, normocephalic, atraumatic. Absent: hematoma, laceration - Eye Eye exam: Present: EOMI. Absent: conjunctival injection, nystagmus, periorbital swelling, scleral icterus, laceration to eyelids Pupils: Present: PERRL. Absent: constricted, dilated, fixed, irregular, unequal - ENT ENT exam: Present: normal exam, normal external ear exam - Neck Neck exam: Present: normal inspection. Absent: lymphadenopathy, meningismus, tenderness, thyromegaly - Respiratory Respiratory exam: Present: clear to auscultation bilaterally. Absent: accessory muscle use, chest wall tenderness - Cardiovascular Cardiovascular exam: Present: Irregularly irregular rate and rhythm, rate control. Absent: carotid bruit, gallop, JVD, rubs - GI/Abdominal GI/Abdominal exam: Present: normal bowel sounds, soft. Absent: distended, firm , guarding, hernia, mass, tenderness, rebound. - Extremities Exam Extremities exam: Present: No clubbing, cyanosis noted. Right extremity swelling. Upper extremity pulses 2+. Lower extremity pulses 2+. Capillary refill less than 3 seconds. Right groin stable. - Back Exam Back exam: Present: normal inspection. Absent: muscle spasm, vertebral tenderness - Neurological Exam Neurological exam: Present: alert, oriented X3, grossly intact without resting or intention tremor - Psychiatric Psychiatric exam: Present: normal affect, normal mood - Skin Skin exam: Present: normal color, warm, dry, intact. Absent: cyanosis, diaphoretic, rash, urticaria Result/EKG - Labs CBC & BMP: 08/02/17 10:51 08/02/17 05:34 Lab Results: I have reviewed the past 24 hour labs Labs: Laboratory Results - last 24 hr 08/01/17 08/02/17 08/02/17 20:17 05:34 05:34 WBC 4.7 RBC 4.11 Hgb 11.3 L Hct 33.8 L MCV 82.2 L MCH 28 MCHC 33.4 RDW 14.4 Plt Count 106 L MPV 11.7 Neut % (Auto) 68.1 Lymph % (Auto) 16.2 L [place] % (Auto) 12.0 Eos % (Auto) 2.7 Baso % (Auto) 0.6 Neut # (Auto) 3.2 Lymph # (Auto) 0.8 L [place] # (Auto) 0.6 Eos # (Auto) 0.1 Baso # (Auto) 0.0 Immature Gran % 0.4 Nucleated RBC % 0.0 Immature Gran # 0.02 Nucleated RBCs # 0.00 Immature Plt Fraction 0.0 Sodium 139 Potassium 4.0 Chloride 104 Carbon Dioxide 26 Anion Gap 13.0 BUN 22 H Creatinine 1.50 H GFR Calculation 59 BUN/Creatinine Ratio 14.00 Glucose 196 H POC Glucose 262 H Calculated Osmolality 284.5 Calcium 9.2 Magnesium 2.3 Blood Type Antibody Screen Crossmatch Blood Bank Comment 08/02/17 08/02/17 08/02/17 05:53 07:48 09:51 WBC RBC Hgb Hct MCV MCH MCHC RDW Plt Count MPV Neut % (Auto) Lymph % (Auto) [place] % (Auto) Eos % (Auto) Baso % (Auto) Neut # (Auto) Lymph # (Auto) [place] # (Auto) Eos # (Auto) Baso # (Auto) Immature Gran % Nucleated RBC % Immature Gran # Nucleated RBCs # Immature Plt Fraction Sodium Potassium Chloride Carbon Dioxide Anion Gap BUN Creatinine GFR Calculation BUN/Creatinine Ratio Glucose POC Glucose 180 H Calculated Osmolality Calcium Magnesium Blood Type A POSITIVE A POSITIVE Antibody Screen Cancelled Negative Crossmatch See Detail Blood Bank Comment Cancelled 08/02/17 08/02/17 10:51 11:58 WBC RBC Hgb 10.4 L Hct 31.0 L MCV MCH MCHC RDW Plt Count MPV Neut % (Auto) Lymph % (Auto) [place] % (Auto) Eos % (Auto) Baso % (Auto) Neut # (Auto) Lymph # (Auto) [place] # (Auto) Eos # (Auto) Baso # (Auto) Immature Gran % Nucleated RBC % Immature Gran # Nucleated RBCs # Immature Plt Fraction Sodium Potassium Chloride Carbon Dioxide Anion Gap BUN Creatinine GFR Calculation BUN/Creatinine Ratio Glucose POC Glucose 160 H Calculated Osmolality Calcium Magnesium Blood Type Antibody Screen Crossmatch Blood Bank Comment <Marie Victoria - Last Filed: 08/02/17 21:48> Assessment and Plan (1) AV fistula Status: Resolved Current Visit: Yes (2) Hypertension Status: Chronic Current Visit: Yes (3) Anticoagulation management encounter Status: Acute Current Visit: Yes (4) Renal insufficiency Problem details: Chronic kidney disease stage III Status: Chronic Current Visit: No (5) Chronic a-fib Status: Chronic Current Visit: No (6) Coronary artery disease Status: Chronic Current Visit: No (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 I have read this note and agree with the findings documented herein. Exam (Progress Note) - Constitutional Vitals: Period Temp Pulse Resp BP Sys/Real Pulse Ox Last 24 Hr 97.4 F-100.0 F 56-112 16-20 109-162/49-85 95-100 Result/EKG - Labs CBC & BMP: 08/02/17 10:51 08/02/17 05:34 Labs: Laboratory Results - last 24 hr 08/02/17 08/02/17 08/02/17 05:34 05:34 05:53 WBC 4.7 RBC 4.11 Hgb 11.3 L Hct 33.8 L MCV 82.2 L MCH 28 MCHC 33.4 RDW 14.4 Plt Count 106 L MPV 11.7 Neut % (Auto) 68.1 Lymph % (Auto) 16.2 L [place] % (Auto) 12.0 Eos % (Auto) 2.7 Baso % (Auto) 0.6 Neut # (Auto) 3.2 Lymph # (Auto) 0.8 L [place] # (Auto) 0.6 Eos # (Auto) 0.1 Baso # (Auto) 0.0 Immature Gran % 0.4 Nucleated RBC % 0.0 Immature Gran # 0.02 Nucleated RBCs # 0.00 Immature Plt Fraction 0.0 Sodium 139 Potassium 4.0 Chloride 104 Carbon Dioxide 26 Anion Gap 13.0 BUN 22 H Creatinine 1.50 H GFR Calculation 59 BUN/Creatinine Ratio 14.00 Glucose 196 H POC Glucose Calculated Osmolality 284.5 Calcium 9.2 Magnesium 2.3 Blood Type A POSITIVE Antibody Screen Cancelled Crossmatch See Detail Blood Bank Comment Cancelled 08/02/17 08/02/17 08/02/17 07:48 09:51 10:51 WBC RBC Hgb 10.4 L Hct 31.0 L MCV MCH MCHC RDW Plt Count MPV Neut % (Auto) Lymph % (Auto) [place] % (Auto) Eos % (Auto) Baso % (Auto) Neut # (Auto) Lymph # (Auto) [place] # (Auto) Eos # (Auto) Baso # (Auto) Immature Gran % Nucleated RBC % Immature Gran # Nucleated RBCs # Immature Plt Fraction Sodium Potassium Chloride Carbon Dioxide Anion Gap BUN Creatinine GFR Calculation BUN/Creatinine Ratio Glucose POC Glucose 180 H Calculated Osmolality Calcium Magnesium Blood Type A POSITIVE Antibody Screen Negative Crossmatch Blood Bank Comment 08/02/17 08/02/17 08/02/17 11:58 16:05 19:28 WBC RBC Hgb Hct MCV MCH MCHC RDW Plt Count MPV Neut % (Auto) Lymph % (Auto) [place] % (Auto) Eos % (Auto) Baso % (Auto) Neut # (Auto) Lymph # (Auto) [place] # (Auto) Eos # (Auto) Baso # (Auto) Immature Gran % Nucleated RBC % Immature Gran # Nucleated RBCs # Immature Plt Fraction Sodium Potassium Chloride Carbon Dioxide Anion Gap BUN Creatinine GFR Calculation BUN/Creatinine Ratio Glucose POC Glucose 160 H 231 H 287 H Calculated Osmolality Calcium Magnesium Blood Type Antibody Screen Crossmatch Blood Bank Comment
[2017-08-02] MEDS ORDERED: INSULIN REGULAR 100 UNIT/ML SUBCUT SCH (16:30)
[2017-08-02] MEDS: INSULIN LISPRO 100 UNIT/ML SUBCUT SCH (16:46)
[2017-08-02] MEDS ORDERED: APIXABAN 2.5 MG TABLET PO SCH (21:00)
[2017-08-02] MEDS: ATORVASTATIN 40 MG TABLET PO SCH (21:06)
[2017-08-02] MEDS: traZODone 50 MG TABLET PO SCH (21:07)
[2017-08-03] MEDS ORDERED: ENOXAPARIN 30 MG/0.3 ML SYRINGE SUBCUT SCH (04:32)
[2017-08-03 05:48] LABS: Hematocrit 29.3 VOL% (42.0-52.0); Hemoglobin 9.7 GM/DL (14.0-18.0); Immature Granulocytes % 0.5 %; Immature Granulocytes Absolute 0.04 #; Lymphocytes # 0.5 10*3/uL (1.4-4.0); Lymphocytes % 6.2 % (21.2-54.2); Mean Corpuscular HGB Conc 33.1 GM/DL (32-36); Mean Corpuscular Hemoglobin 27 PG (27-34); Mean Corpuscular Volume 82.3 FL (87-102); Mean Platelet Volume 12.1 FL (9.6-12.0); Monocytes # 0.3 10*3/uL (0.11-0.8); Monocytes % 4.2 % (1.7-12.7); Neutrophils # 6.8 10*3/uL (1.4-7.4); Neutrophils % 89.1 % (38.7-73.9); Red Blood Count 3.56 MC/CUMM (3.8-5.5); Red Cell Distribution Width 14.4 % (9.3-17.3); White Blood Count 7.6 T/CUMM (4-12)
[2017-08-03 05:49] LABS: Platelet Count 97 T/CUMM (130-400)
[2017-08-03 06:17] LABS: Magnesium 2.1 MG/DL (1.8-2.4); Osmolality,Calculated 281.1 MOS/KG (273-304)
[2017-08-03 06:28] LABS: Giant Platelets Few; Hypochromasia 1+; Microcytosis Slight; Platelet Estimate Decreased
[2017-08-03] MEDS ORDERED: ASPIRIN EC 81 MG TABLET PO SCH (09:00)
--- NOTE | 2017-08-03 09:31 | Event Note ---
Mr. Braun is up and about walking in the room comfortable no hematoma in the groin leg has definitely decreased in size with much less edema although there is still edema on the right foot compared to the left. Foot is warm and adequately perfused he does not have palpable pulses which I had noted in the past. His H&H is down a bit but still reasonable at 9 and 27 platelet count has dropped bit to 97 these are stable and will respond without transfusion. His creatinine has gone up to 2.0 from 1.5 this is related to I do not think he needs to resume IV fluids with another BMP in the morning would be appropriate. I discussed with Mr. Braun and his son is exercise and possible discharge over the weekend I would like to see him in the office next week for routine checkup be available this weekend if needed call if there is any questions please
--- NOTE | 2017-08-03 10:12 | Cardiology Progress Note ---
<Krystal Hodge - Last Filed: 08/03/17 10:04> Assessment and Plan (1) AV fistula Status: Resolved Assessment and plan: SEE PLAN OF CARE LISTED BELOW. Current Visit: Yes (2) Anticoagulation management encounter Status: Acute Assessment and plan: SEE PLAN OF CARE LISTED BELOW. Current Visit: Yes (3) Hypertension Status: Chronic Assessment and plan: SEE PLAN OF CARE LISTED BELOW. Current Visit: Yes (4) Chronic a-fib Status: Chronic Assessment and plan: SEE PLAN OF CARE LISTED BELOW. Current Visit: No (5) Coronary artery disease Status: Chronic Assessment and plan: SEE PLAN OF CARE LISTED BELOW. Current Visit: No (6) Diabetes Status: Chronic Assessment and plan: SEE PLAN OF CARE LISTED BELOW. Current Visit: No (7) Ischemic cardiomyopathy Status: Chronic Assessment and plan: SEE PLAN OF CARE LISTED BELOW. Current Visit: No (8) Renal insufficiency Problem details: Chronic kidney disease stage III Status: Chronic Assessment and plan: SEE PLAN OF CARE LISTED BELOW. Current Visit: No (9) Status post aorto-coronary artery bypass graft Status: Chronic Assessment and plan: SEE PLAN OF CARE LISTED BELOW. 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 Braun is a 76-year-old WM with history of CAD, ischemic cardio myopathy, hypertension, diabetes mellitus, peripheral vascular disease. Status post three -vessel CABG November 1995 with PEREZ to LAD, vein graft to diagonal and vein graft to RCA. He is status post mid RCA stent May 26, 2014. The patient was just admitted to the hospital and discharged earlier this week. He was having worsening chest discomfort and shortness of breath. Cardiac catheterization commenced on Sunday, July 30, 2017 demonstrating a patent left main trunk, patent circumflex system, moderate LAD disease with a patent PEREZ to LAD, dominant right coronary artery with patent mid vessel stent, occluded posterior LV branch, patent PDA, occluded SVG to RCA, occluded SVG to diagonal artery, and abdominal aortogram demonstrating widely patent endovascular stent as well as patent bilateral iliac artery stents although more peripheral stenosis was noted. 2016 Patient was seen and examined on the telemetry unit. He underwent surgical repair of his right femoral arterial venous fistula per Dr. Mata. Postop day # 1 today. He tolerated this procedure well. Without cardiac complaints this morning. Denies chest pain and shortness of breath. Right groin is stable. Hematoma to right groin has decreased in size. Edema improved. H&H this morning is 29.[address] Mata does not feel like patient will require transfusion. Creatinine went from 1.5-2.0 overnight. Suspect that this is related to the dye the patient received. I have encouraged patient to increase p.o. fluid intake. Do not feel that patient will need IV fluid resuscitation at this time. We will recheck BMP in the morning. Eliquis was reinitiated this morning. Vital signs are stable. Patient's atrial fibrillation has remained rate controlled. Patient may be eligible for discharge home this weekend. I will further discuss with Dr. Hyman and await her additional recommendations. IMPRESSION AND PLAN: 1. RIGHT FEMORAL ARTERIAL VENOUS FISTULA - The patient developed an AV fistula , status post heart catheterization. Dr. Mata was consulted and he underwent surgical repair. Postop day #1 today. Groin hematoma has improved. Continue current plan of care. 2. CORONARY ARTERY DISEASE - He is status post cardiac catheterization on July 30, 2017 demonstrating disease as described above. Clinically this is stable. 3. ISCHEMIC CARDIOMYOPATHY - Without overt heart failure. Patient is on good medication regimen. 4. CHRONIC PERSISTENT ATRIAL FIBRILLATION - Rate controlled. Eliquis was reinitiated this morning. Will check CBC in the morning. 5. HYPERTENSION - Chronic. Well controlled. 6. DIABETES MELLITUS - Chronic. Sliding scale insulin. 7. RENAL INSUFFICIENCY - Patient's creatinine did increase from 1.5-2.0 overnight. Suspect that this is related to IV contrast dye. Do not feel that patient will require IV fluid resuscitation at this time. I have encouraged patient to increase p.o. fluid intake. Will recheck BMP in the morning. Exam (Progress Note) - Constitutional Vitals: Period Temp Pulse Resp BP Sys/Real Pulse Ox Last 24 Hr 97.4 F-97.9 F 56-112 16-20 108-162/49-85 96-100 Exam: General appearance: normal weight, no acute distress - Head Head exam: Present: normal inspection, normocephalic, atraumatic. Absent: hematoma, laceration - Eye Eye exam: Present: EOMI. Absent: conjunctival injection, nystagmus, periorbital swelling, scleral icterus, laceration to eyelids Pupils: Present: PERRL. Absent: constricted, dilated, fixed, irregular, unequal - ENT ENT exam: Present: normal exam, normal external ear exam - Neck Neck exam: Present: normal inspection. Absent: lymphadenopathy, meningismus, tenderness, thyromegaly - Respiratory Respiratory exam: Present: clear to auscultation bilaterally. Absent: accessory muscle use, chest wall tenderness - Cardiovascular Cardiovascular exam: Present: Irregularly irregular rate and rhythm, rate control. Absent: carotid bruit, gallop, JVD, rubs - GI/Abdominal GI/Abdominal exam: Present: normal bowel sounds, soft. Absent: distended, firm , guarding, hernia, mass, tenderness, rebound. - Extremities Exam Extremities exam: Present: No clubbing, cyanosis noted. Right extremity swelling improved. Upper extremity pulses 2+. Capillary refill less than 3 seconds. Right groin stable. Diminished pulse in right lower extremity, warm to touch. 2+ right lower extremity pulse. - Back Exam Back exam: Present: normal inspection. Absent: muscle spasm, vertebral tenderness - Neurological Exam Neurological exam: Present: alert, oriented X3, grossly intact without resting or intention tremor - Psychiatric Psychiatric exam: Present: normal affect, normal mood - Skin Skin exam: Present: normal color, warm, dry, intact. Absent: cyanosis, diaphoretic, rash, urticaria Result/EKG - Labs CBC & BMP: 08/03/17 05:00 08/03/17 05:00 Lab Results: I have reviewed the past 24 hour labs Labs: Laboratory Results - last 24 hr 08/02/17 08/02/17 08/02/17 05:53 09:51 10:51 WBC RBC Hgb 10.4 L Hct 31.0 L MCV MCH MCHC RDW Plt Count MPV Neut % (Auto) Lymph % (Auto) Wells % (Auto) Eos % (Auto) Baso % (Auto) Neut # (Auto) Lymph # (Auto) Wells # (Auto) Eos # (Auto) Baso # (Auto) Immature Gran % Nucleated RBC % Immature Gran # Nucleated RBCs # Platelet Estimate Giant Platelets Immature Plt Fraction Hypochromasia Microcytosis Morphology Comment Sodium Potassium Chloride Carbon Dioxide Anion Gap BUN Creatinine GFR Calculation BUN/Creatinine Ratio Glucose POC Glucose Calculated Osmolality Calcium Magnesium Blood Type A POSITIVE A POSITIVE Antibody Screen Cancelled Negative Crossmatch See Detail Blood Bank Comment Cancelled 08/02/17 08/02/17 08/02/17 11:58 16:05 19:28 WBC RBC Hgb Hct MCV MCH MCHC RDW Plt Count MPV Neut % (Auto) Lymph % (Auto) Wells % (Auto) Eos % (Auto) Baso % (Auto) Neut # (Auto) Lymph # (Auto) Wells # (Auto) Eos # (Auto) Baso # (Auto) Immature Gran % Nucleated RBC % Immature Gran # Nucleated RBCs # Platelet Estimate Giant Platelets Immature Plt Fraction Hypochromasia Microcytosis Morphology Comment Sodium Potassium Chloride Carbon Dioxide Anion Gap BUN Creatinine GFR Calculation BUN/Creatinine Ratio Glucose POC Glucose 160 H 231 H 287 H Calculated Osmolality Calcium Magnesium Blood Type Antibody Screen Crossmatch Blood Bank Comment 08/03/17 08/03/17 08/03/17 05:00 05:00 07:29 WBC 7.6 D RBC 3.56 L Hgb 9.7 L Hct 29.3 L MCV 82.3 L MCH 27 MCHC 33.1 RDW 14.4 Plt Count 97 L MPV 12.1 H Neut % (Auto) 89.1 H Lymph % (Auto) 6.2 L Wells % (Auto) 4.2 Eos % (Auto) 0.0 Baso % (Auto) 0.0 Neut # (Auto) 6.8 Lymph # (Auto) 0.5 L Wells # (Auto) 0.3 Eos # (Auto) 0.0 Baso # (Auto) 0.0 Immature Gran % 0.5 Nucleated RBC % 0.0 Immature Gran # 0.04 Nucleated RBCs # 0.00 Platelet Estimate Decreased Giant Platelets Few Immature Plt Fraction 8.1 H Hypochromasia 1+ Microcytosis Slight Morphology Comment Sodium 135 L Potassium 5.0 Chloride 100 Carbon Dioxide 29 Anion Gap 11.0 BUN 27 H Creatinine 2.00 H GFR Calculation 42 BUN/Creatinine Ratio 13.00 Glucose 232 H POC Glucose 269 H Calculated Osmolality 281.1 Calcium 9.0 Magnesium 2.1 Blood Type Antibody Screen Crossmatch Blood Bank Comment Specialty Discharge - Follow Up or Referrals Follow up with: Ender Mata MD [Physician] - Chaka Guerin MD [Primary Care Provider] - <Marie Victoria - Last Filed: 08/03/17 17:21> Assessment and Plan (1) AV fistula Status: Resolved Current Visit: Yes (2) Hypertension Status: Chronic Current Visit: Yes (3) Anticoagulation management encounter Status: Acute Current Visit: Yes (4) Renal insufficiency Problem details: Chronic kidney disease stage III Status: Chronic Current Visit: No (5) Chronic a-fib Status: Chronic Current Visit: No (6) Coronary artery disease Status: Chronic Current Visit: No (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 I have read this note and agree with the documentation herein. I discussed this case with Dr. Mata. He does not currently have IV access so we will try to push oral fluids and reevaluate his creatinine tomorrow. If it is stable or improving he will should be stable for discharge. We are going to maintain him on Plavix and Eliquis. Exam (Progress Note) - Constitutional Vitals: Period Temp Pulse Resp BP Sys/Real Pulse Ox Last 24 Hr 97.1 F-97.8 F 60-71 18-20 108-127/54-73 96-100 Result/EKG - Labs CBC & BMP: 08/03/17 05:00 08/03/17 05:00 Labs: Laboratory Results - last 24 hr 08/02/17 08/03/17 08/03/17 19:28 05:00 05:00 WBC 7.6 D RBC 3.56 L Hgb 9.7 L Hct 29.3 L MCV 82.3 L MCH 27 MCHC 33.1 RDW 14.4 Plt Count 97 L MPV 12.1 H Neut % (Auto) 89.1 H Lymph % (Auto) 6.2 L Wells % (Auto) 4.2 Eos % (Auto) 0.0 Baso % (Auto) 0.0 Neut # (Auto) 6.8 Lymph # (Auto) 0.5 L Wells # (Auto) 0.3 Eos # (Auto) 0.0 Baso # (Auto) 0.0 Immature Gran % 0.5 Nucleated RBC % 0.0 Immature Gran # 0.04 Nucleated RBCs # 0.00 Platelet Estimate Decreased Giant Platelets Few Immature Plt Fraction 8.1 H Hypochromasia 1+ Microcytosis Slight Morphology Comment Sodium 135 L Potassium 5.0 Chloride 100 Carbon Dioxide 29 Anion Gap 11.0 BUN 27 H Creatinine 2.00 H GFR Calculation 42 BUN/Creatinine Ratio 13.00 Glucose 232 H POC Glucose 287 H Calculated Osmolality 281.1 Calcium 9.0 Magnesium 2.1 08/03/17 08/03/17 08/03/17 07:29 11:39 16:26 WBC RBC Hgb Hct MCV MCH MCHC RDW Plt Count MPV Neut % (Auto) Lymph % (Auto) Wells % (Auto) Eos % (Auto) Baso % (Auto) Neut # (Auto) Lymph # (Auto) Wells # (Auto) Eos # (Auto) Baso # (Auto) Immature Gran % Nucleated RBC % Immature Gran # Nucleated RBCs # Platelet Estimate Giant Platelets Immature Plt Fraction Hypochromasia Microcytosis Morphology Comment Sodium Potassium Chloride Carbon Dioxide Anion Gap BUN Creatinine GFR Calculation BUN/Creatinine Ratio Glucose POC Glucose 269 H 232 H 212 H Calculated Osmolality Calcium Magnesium
[2017-08-03] MEDS: POTASSIUM CITRATE 10 MEQ TABLET PO SCH ×2 (10:19→21:37)
[2017-08-03] MEDS: INSULIN LISPRO 100 UNIT/ML SUBCUT SCH ×2 (10:19→17:30)
[2017-08-03] MEDS: APIXABAN 2.5 MG TABLET PO SCH ×2 (10:20→21:37)
[2017-08-03] MEDS: CALCIUM (CARBONATE)/VITAMIN D 600 MG-400 UNIT TABLET PO SCH (10:20)
[2017-08-03] MEDS: ISOSORBIDE MONONITRATE 60 MG TABLET PO SCH ×2 (10:20→21:37)
[2017-08-03] MEDS: MULTIVITAMIN (CENTRUM) TABLET PO SCH (10:20)
[2017-08-03] MEDS: CARVEDILOL 6.25 MG TABLET PO SCH ×2 (10:21→21:38)
[2017-08-03] MEDS: POTASSIUM CHLORIDE 10 MEQ TABLET PO SCH ×4 (10:22→21:44)
[2017-08-03] MEDS: ASPIRIN CHEW 81 MG TABLET PO SCH (10:22)
[2017-08-03] MEDS: FUROSEMIDE 40 MG TABLET PO SCH ×2 (10:22→17:29)
[2017-08-03] MEDS: PANTOPRAZOLE 40 MG TABLET PO SCH ×3 (10:23→21:44)
[2017-08-03] MEDS: ALLOPURINOL 100 MG TABLET PO SCH (10:24)
[2017-08-03] MEDS ORDERED: POLYETHYLENE GLYCOL POWDER 17 GM PACK PO ONE (11:33)
--- NOTE | 2017-08-03 15:58 | Physician Query Form ---
CLICK EDIT DOCUMENT TO SELECT QUERY ANSWER --> OK --> SIGN Ginny Conrad RN Clinical Scheme Technician W) [phone] (f) [phone] [email or web address] PROVIDERS: Make your selection(s) from the choices in EACH section by typing an "x" and enter comments in the comment section. Please use your independent medical judgment in providing your response. This request does not imply that any particular answer is desired or expected. CLINICAL INDICATORS: (Providers should not edit this section) Based on documentation of " Creatinine went from 1.5-2.0 overnight. Suspect that this is related to the dye the patient received". Pt. treated with IV fluids. Clarify which of the following most accurately represents the patient's renal status: ( ) Acute kidney injury (non-traumatic) ( ) Acute renal failure (x ) Acute renal failure with underlying Chronic Kidney Disease (CKD) - please provide stage below ( ) CKD - please provide stage below ( ) Other, please specify: ( ) Clinically unable to determine Chronic Kidney Disease Stages Source: National Kid[employer] Foundation ( ) Stage I (eGFR > or = 90) ( ) Stage II (eGFR 60 - 89) ( x) Stage III (eGFR 30 - 59) ( ) Stage IV (eGFR 15 - 29) ( ) Stage V (eGFR < 15 or dialysis) COMMENTS: PLEASE ALSO DOCUMENT RESPONSE IN PROGRESS NOTES AND/OR DISCHARGE SUMMARY Use of terms such as suspected, likely, or probable (associated with a specific diagnosis that is being evaluated, monitored, or treated as if it exists) are acceptable and can be restated in the discharge summary if not ruled out. MTDD
[2017-08-03] MEDS ORDERED: POLYETHYLENE GLYCOL POWDER 17 GM PACK PO PRN (17:22)
[2017-08-03] MEDS: ACETYLCYSTEINE 600 MG CAPSULE PO SCH (21:37)
[2017-08-03] MEDS: ATORVASTATIN 40 MG TABLET PO SCH (21:38)
[2017-08-03] MEDS: traZODone 50 MG TABLET PO SCH (21:38)
[2017-08-04 05:36] LABS: Basophils % 0.2 % (0.0-0.8); Eosinophils % 0.7 % (0.00-10.9); Hematocrit 29.4 VOL% (42.0-52.0); Hemoglobin 9.7 GM/DL (14.0-18.0); Immature Granulocytes % 0.5 %; Immature Granulocytes Absolute 0.03 #; Lymphocytes # 0.8 10*3/uL (1.4-4.0); Lymphocytes % 13.3 % (21.2-54.2); Mean Corpuscular Hemoglobin 28 PG (27-34); Mean Corpuscular Volume 83.5 FL (87-102); Mean Platelet Volume 11.9 FL (9.6-12.0); Monocytes # 0.5 10*3/uL (0.11-0.8); Monocytes % 9.3 % (1.7-12.7); Neutrophils # 4.4 10*3/uL (1.4-7.4); Red Blood Count 3.52 MC/CUMM (3.8-5.5); Red Cell Distribution Width 14.8 % (9.3-17.3); White Blood Count 5.8 T/CUMM (4-12)
[2017-08-04 05:45] LABS: Platelet Count 95 T/CUMM (130-400)
[2017-08-04 06:00] LABS: Platelet Estimate Decreased
[2017-08-04 06:06] LABS: Calcium 9.1 MG/DL (8.5-10.1); Magnesium 2.3 MG/DL (1.8-2.4); Osmolality,Calculated 283.8 MOS/KG (273-304); Potassium 4.9 MMOL/L (3.5-5.1)
[2017-08-04] MEDS ORDERED: CLOPIDOGREL 75 MG TABLET PO SCH (09:00)
[2017-08-04] MEDS: POTASSIUM CITRATE 10 MEQ TABLET PO SCH (09:57)
[2017-08-04] MEDS: ISOSORBIDE MONONITRATE 60 MG TABLET PO SCH (09:57)
[2017-08-04] MEDS: MULTIVITAMIN (CENTRUM) TABLET PO SCH (09:58)
[2017-08-04] MEDS: ACETYLCYSTEINE 600 MG CAPSULE PO SCH (09:58)
[2017-08-04] MEDS: PANTOPRAZOLE 40 MG TABLET PO SCH ×2 (09:58→10:00)
[2017-08-04] MEDS: CALCIUM (CARBONATE)/VITAMIN D 600 MG-400 UNIT TABLET PO SCH (09:58)
[2017-08-04] MEDS: ASPIRIN CHEW 81 MG TABLET PO SCH (09:59)
[2017-08-04] MEDS: CARVEDILOL 6.25 MG TABLET PO SCH (09:59)
[2017-08-04] MEDS: APIXABAN 2.5 MG TABLET PO SCH (09:59)
[2017-08-04] MEDS: ALLOPURINOL 100 MG TABLET PO SCH (10:00)
[2017-08-04] MEDS: INSULIN LISPRO 100 UNIT/ML SUBCUT SCH (10:01)
[2017-08-04] MEDS: POTASSIUM CHLORIDE 10 MEQ TABLET PO SCH (10:26)
--- NOTE | 2017-08-04 10:41 | Event Note ---
Mr. Braun is comfortable doing well much less swelling in his legs incision looks good with no hematoma mild bruising he should be safe to go home today and can resume activities as tolerated like to see him in the office in 1-2 weeks checkup in course I will follow him routinely with his endograft long-term
--- NOTE | 2017-08-04 11:00 | Discharge Summary ---
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 Braun is a 76-year-old WM with history of CAD, ischemic cardiomyopathy, hypertension, diabetes mellitus, peripheral vascular disease. Status post three -vessel CABG November 1995 with PEREZ to LAD, vein graft to diagonal and vein graft to RCA. He is status post mid RCA stent May 26, 2014. The patient was admitted to the hospital July 28 - July 31 with complaints of chest pain and shortness of breath. Cardiac catheterization commenced on Sunday, July 30, 2017 demonstrating a patent left main trunk, patent circumflex system, moderate LAD disease with a patent PEREZ to LAD, dominant right coronary artery with patent mid vessel stent, occluded posterior LV branch, patent PDA, occluded SVG to RCA, occluded SVG to diagonal artery, and abdominal aortogram demonstrating widely patent endovascular stent as well as patent bilateral iliac artery stents although more peripheral stenosis was noted. When he was discharged on July 31 he was noted to have a left groin bruit, and vascular ultrasound confirmed no postintervention complications of the left groin. The right groin site had adequate pulse, no hematoma or bruit. The patient reported to the emergency room the following day on August 01 with complaints of right groin pain, increased leg swelling. He had a new right femoral bruit. Right venous ultrasound was abnormal, initially reported as a DVT. He subsequently underwent CT angiogram which confirmed right femoral arteriovenous fistula formation. Clinically had associated acute right lower extremity venous hypertension. He underwent surgical correction of the fistula by Dr. Mata on August 02, 2009. He did not have any surgical complications. The following day on August 03 there was a mild increase in his creatinine to 2, so he was maintained in the hospital to observe his renal function and encourage p.o. fluid intake. On the day of discharge his creatinine has improved to 1.8. He denies any chest pain, shortness of breath. His right lower extremity edema is improved. The surgical site is without calor, erythema or hematoma. There is some mild surrounding ecchymosis. He is being discharged home in stable condition to follow-up with Dr. Mata in 1 -2 weeks. He is to keep his regular scheduled follow-up with Dr. Guerin. I discussed medications with Dr. Mata. He would like to continue the patient on Eliquis and Plavix. We discussed stopping the aspirin. Additionally, his potassium was at the upper limits of normal during his hospital stay so I have decreased his potassium supplementation. 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 Mata instruction to patient) Hygiene: may shower - Discharge Medications Continue Furosemide Tab [Lasix Tab] 40 mg PO BID Allopurinol 25 mg PO DAILY Clopidogrel [Plavix] 75 mg PO QAM Potassium Citrate [Urocit K] 20 meq PO BID Multivitamin [Multivitamins] 1 tablet PO DAILY Isosorbide Mononitrate [Isosorbide Mononitrate ER] 60 mg PO BID Carvedilol 6.25 mg PO BID Calcium Carbonate/Vitamin D3 [Calcium 600-Vit D3 800 Tablet] 1 each PO DAILY Apixaban [Eliquis] 2.5 mg PO BID #60 tablet Nitroglycerin Sl Tab [Nitrostat] 0.4 mg SL Q5M PRN #1 bottle PRN Reason: Chest Pain Insulin Lispro [HumaLOG] 1 unit SUBCUT BID PRN PRN Reason: diabetes Pantoprazole Tab [Protonix Tab] 40 mg PO BID #60 tablet Trazodone HCl 100 mg PO BEDTIME Atorvastatin [Lipitor] 40 mg PO BEDTIME #30 tablet Changed Potassium Chloride [Klor-Con 10] 10 meq PO DAILY #0 Discontinued Aspirin EC Tab 81 mg PO DAILY #30 tablet - Follow Up or Referral Follow Up: Ender Mata MD [Physician] - 1 Week Chaka Guerin MD [Primary Care Provider] - (Keep scheduled f/u) - Forms/Instructions Additional Discharge Instructions: BMP 1 week Exam - Constitutional Vitals: Period Temp Pulse Resp BP Sys/Real Pulse Ox Last 24 Hr 97.0 F-98.3 F 60-75 18-20 94-132/51-73 96-100 Exam: General appearance: normal weight, no acute distress - Head Head exam: Present: normal inspection, normocephalic, atraumatic. Absent: hematoma, laceration - Eye Eye exam: Present: EOMI. Absent: conjunctival injection, nystagmus, periorbital swelling, scleral icterus, laceration to eyelids Pupils: Present: PERRL. Absent: constricted, dilated, fixed, irregular, unequal - ENT ENT exam: Present: normal exam, normal external ear exam - Neck Neck exam: Present: normal inspection. Absent: lymphadenopathy, meningismus, tenderness, thyromegaly - Respiratory Respiratory exam: Present: clear to auscultation bilaterally. Absent: accessory muscle use, chest wall tenderness - Cardiovascular Cardiovascular exam: Present: Irregularly irregular rate and rhythm. Absent: carotid bruit, gallop, JVD, rubs - GI/Abdominal GI/Abdominal exam: Present: normal bowel sounds, soft. Absent: distended, firm , guarding, hernia, mass, tenderness, rebound. - Extremities Exam Extremities exam: Present: Right lower extremity with 1+ edema. Right groin is without bruit, surgical site is without calor, erythema, hematoma. Ecchymosis is present. Pulse is readily palpable. - Back Exam Back exam: Present: normal inspection. Absent: muscle spasm, vertebral tenderness - Neurological Exam Neurological exam: Present: alert, oriented X3, grossly intact without resting or intention tremor - Psychiatric Psychiatric exam: Present: normal affect, normal mood - Skin Skin exam: Present: normal color, warm, dry, intact. Absent: cyanosis, diaphoretic, rash, urticaria Discharge Results Procedures and tests throughout hospitalization: Pending Orders 08/02/17 05:53 Red Blood Cells Leuko Red Stat Labs on day of discharge: Labs from last 24 hours 08/04/17 08/04/17 08/04/17 07:19 05:15 05:15 WBC 5.8 RBC 3.52 L Hgb 9.7 L Hct 29.4 L MCV 83.5 L MCH 28 MCHC 33.0 RDW 14.8 Plt Count 95 L MPV 11.9 Neut % (Auto) 76.0 H Lymph % (Auto) 13.3 L [place] % (Auto) 9.3 Eos % (Auto) 0.7 Baso % (Auto) 0.2 Neut # (Auto) 4.4 Lymph # (Auto) 0.8 L [place] # (Auto) 0.5 Eos # (Auto) 0.0 Baso # (Auto) 0.0 Immature Gran % 0.5 Nucleated RBC % 0.0 Immature Gran # 0.03 Nucleated RBCs # 0.00 Platelet Estimate Decreased Immature Plt Fraction 0.0 Anisocytosis Sodium 137 Potassium 4.9 Chloride 104 Carbon Dioxide 26 Anion Gap 11.9 BUN 30 H Creatinine 1.80 H GFR Calculation 47 BUN/Creatinine Ratio 16.00 Glucose 186 H POC Glucose 191 H Calculated Osmolality 283.8 Calcium 9.1 Magnesium 2.3 Crossmatch 08/03/17 08/03/17 08/03/17 20:22 16:26 11:39 WBC RBC Hgb Hct MCV MCH MCHC RDW Plt Count MPV Neut % (Auto) Lymph % (Auto) [place] % (Auto) Eos % (Auto) Baso % (Auto) Neut # (Auto) Lymph # (Auto) [place] # (Auto) Eos # (Auto) Baso # (Auto) Immature Gran % Nucleated RBC % Immature Gran # Nucleated RBCs # Platelet Estimate Immature Plt Fraction Anisocytosis Sodium Potassium Chloride Carbon Dioxide Anion Gap BUN Creatinine GFR Calculation BUN/Creatinine Ratio Glucose POC Glucose 244 H 212 H 232 H Calculated Osmolality Calcium Magnesium Crossmatch 08/02/17 05:53 WBC RBC Hgb Hct MCV MCH MCHC RDW Plt Count MPV Neut % (Auto) Lymph % (Auto) [place] % (Auto) Eos % (Auto) Baso % (Auto) Neut # (Auto) Lymph # (Auto) [place] # (Auto) Eos # (Auto) Baso # (Auto) Immature Gran % Nucleated RBC % Immature Gran # Nucleated RBCs # Platelet Estimate Immature Plt Fraction Anisocytosis Sodium Potassium Chloride Carbon Dioxide Anion Gap BUN Creatinine GFR Calculation BUN/Creatinine Ratio Glucose POC Glucose Calculated Osmolality Calcium Magnesium Crossmatch See Detail DS: Provider Date of admission: 08/01/17 15:44 Primary care physician: Chaka Guerin MD Attending physician on admission: Marie Victoria, Consults: 08/01/17 15:59 Consult to Physician [CONS] Routine Comment: right femoral vascular complication post cath Consulting Provider: Ender Mata When should Consulting Provider be notified: Now Discharging clinician: Marie Victoria, Expected date of discharge: 08/04/17
[2017-08-04 12:57] VITALS: BP 97/56
== END 2017-08-04 12:51 | disposition home or self-care (01) | DRG 263 ==
LOC: N.ED 10:49 → N.EDINP 15:44 → N.TELEN 16:35
PROVIDERS: ADMIT Internal Medicine Cardiovascular Disease; ATTEND Internal Medicine Cardiovascular Disease

== ENCOUNTER 2018-08-24 14:45 | Inpatient (IN) ==
[2018-08-24 16:12] LABS: Basophils % 0.7 % (0.0-0.8); Eosinophils # 0.1 10*3/uL (0.0-0.87); Eosinophils % 1.7 % (0.00-10.9); Hematocrit 27.2 VOL% (42.0-52.0); Hemoglobin 9.2 GM/DL (14.0-18.0); Immature Granulocytes % 0.5 %; Immature Granulocytes Absolute 0.02 #; Lymphocytes # 0.7 10*3/uL (1.4-4.0); Lymphocytes % 16.6 % (21.2-54.2); Mean Corpuscular HGB Conc 33.8 GM/DL (32-36); Mean Corpuscular Hemoglobin 25 PG (27-34); Mean Corpuscular Volume 73.9 FL (87-102); Mean Platelet Volume 11.9 FL (9.6-12.0); Monocytes # 0.5 10*3/uL (0.11-0.8); Monocytes % 12.9 % (1.7-12.7); Neutrophils # 2.7 10*3/uL (1.4-7.4); Neutrophils % 67.6 % (38.7-73.9); Platelet Count 107 T/CUMM (130-400); Red Blood Count 3.68 MC/CUMM (3.8-5.5); Red Cell Distribution Width 16.6 % (9.3-17.3)
[2018-08-24 16:24] LABS: INR 1.3; PT Patient Result 13.8 SECS
[2018-08-24 16:34] LABS: Albumin 3.2 G/DL (3.4-5.0); Bilirubin,Total 1.1 MG/DL (0.2-1.0); Calcium 8.5 MG/DL (8.5-10.1); Osmolality,Calculated 264.4 MOS/KG (273-304); Potassium 3.1 MMOL/L (3.5-5.1); Total Protein 6.5 G/DL (6.4-8.3)
[2018-08-24] MEDS ORDERED: FUROSEMIDE 100 MG/10 ML VIAL IV STA (17:17)
[2018-08-24] MEDS ORDERED: NITROGLYCERIN SL 0.4 MG TABLET SL PRN (21:35)
[2018-08-24] MEDS ORDERED: CYCLOBENZAPRINE 10 MG TABLET PO PRN (21:35)
[2018-08-24] MEDS ORDERED: AMITRIPTYLINE 25 MG TABLET PO PRN (21:35)
[2018-08-24] MEDS ORDERED: DEXTROSE 50% 25 GM/50 ML VIAL IV PRN ×2 (21:35)
[2018-08-24] MEDS ORDERED: MAGNESIUM SULF RIDER 2 GM in PREMIX 1 EACH IV PRN (21:35)
[2018-08-24] MEDS ORDERED: GLUCAGON 1 MG VIAL IM PRN ×2 (21:35)
[2018-08-24] MEDS ORDERED: ONDANSETRON 4 MG/2 ML VIAL IV PRN (21:35)
[2018-08-24] MEDS ORDERED: MAGNESIUM SULF RIDER 4 GM in PREMIX 1 EACH IV PRN (21:35)
[2018-08-24] MEDS ORDERED: SODIUM CHLORIDE 0.9% 1,000 ML IV SCH (21:35)
[2018-08-24 22:05] LABS: % Iron Saturation 3.9 % (18-50); Thyroid Stimulating Hormone 1.81 uIU/ml (0.358-3.74)
[2018-08-24] MEDS: POTASSIUM CHLORIDE 20 MEQ TABLET PO SCH (22:40)
[2018-08-24] MEDS: SODIUM CHLORIDE 1 GM TABLET PO SCH (22:40)
[2018-08-24] MEDS: APIXABAN 2.5 MG TABLET PO SCH (22:40)
[2018-08-24] MEDS: CARVEDILOL 6.25 MG TABLET PO SCH (22:40)
[2018-08-24] MEDS: ATORVASTATIN 40 MG TABLET PO SCH (22:41)
[2018-08-24] MEDS: ISOSORBIDE MONONITRATE 60 MG TABLET PO SCH (22:41)
[2018-08-24] MEDS: POTASSIUM CHLORIDE RIDER 10 MEQ in PREMIX 1 EACH IV PRN (22:42)
[2018-08-25] MEDS: POTASSIUM CHLORIDE RIDER 10 MEQ in PREMIX 1 EACH IV PRN ×3 (00:40→04:14)
[2018-08-25 05:24] LABS: Calcium 8.3 MG/DL (8.5-10.1); Osmolality,Calculated 268.8 MOS/KG (273-304); Potassium 3.1 MMOL/L (3.5-5.1)
[2018-08-25] MEDS: SODIUM CHLORIDE 1 GM TABLET PO SCH (08:51)
[2018-08-25] MEDS: ISOSORBIDE MONONITRATE 60 MG TABLET PO SCH ×2 (08:51→20:56)
[2018-08-25] MEDS: CALCIUM (CARBONATE)/VITAMIN D 600 MG-400 UNIT TABLET PO SCH (08:51)
[2018-08-25] MEDS: PANTOPRAZOLE 40 MG TABLET PO SCH (08:51)
[2018-08-25] MEDS: CLOPIDOGREL 75 MG TABLET PO SCH (08:51)
[2018-08-25] MEDS: MULTIVITAMIN (CENTRUM) TABLET PO SCH (08:52)
[2018-08-25] MEDS: CARVEDILOL 6.25 MG TABLET PO SCH ×2 (08:52→17:21)
[2018-08-25] MEDS: APIXABAN 2.5 MG TABLET PO SCH ×2 (08:52→20:57)
[2018-08-25] MEDS: POTASSIUM CHLORIDE 20 MEQ TABLET PO SCH ×2 (08:52→20:57)
[2018-08-25] MEDS: FUROSEMIDE 40 MG/4 ML VIAL IV SCH ×2 (08:54→17:21)
[2018-08-25] MEDS: ATORVASTATIN 40 MG TABLET PO SCH (20:56)
[2018-08-26 03:53] LABS: Basophils % 0.7 % (0.0-0.8); Eosinophils # 0.1 10*3/uL (0.0-0.87); Eosinophils % 1.5 % (0.00-10.9); Hematocrit 26.7 VOL% (42.0-52.0); Immature Granulocytes % 0.2 %; Immature Granulocytes Absolute 0.01 #; Lymphocytes # 0.9 10*3/uL (1.4-4.0); Lymphocytes % 18.9 % (21.2-54.2); Mean Corpuscular HGB Conc 33.7 GM/DL (32-36); Mean Corpuscular Hemoglobin 24 PG (27-34); Mean Platelet Volume 12.2 FL (9.6-12.0); Monocytes # 0.7 10*3/uL (0.11-0.8); Monocytes % 14.8 % (1.7-12.7); Neutrophils % 63.9 % (38.7-73.9); Platelet Count 109 T/CUMM (130-400); Red Blood Count 3.71 MC/CUMM (3.8-5.5); Red Cell Distribution Width 16.9 % (9.3-17.3); White Blood Count 4.6 T/CUMM (4-12)
[2018-08-26 04:15] LABS: Calcium 8.9 MG/DL (8.5-10.1); Osmolality,Calculated 274.4 MOS/KG (273-304); Potassium 2.8 MMOL/L (3.5-5.1)
[2018-08-26 04:26] LABS: Anisocytosis Slight; Burr Cells Few; Microcytosis 3+; Platelet Estimate Decreased
[2018-08-26] MEDS: POTASSIUM CHLORIDE RIDER 10 MEQ in PREMIX 1 EACH IV PRN ×2 (05:34→06:35)
[2018-08-26] MEDS ORDERED: POTASSIUM CHLORIDE 20 MEQ TABLET PO PRN (08:04)
[2018-08-26] MEDS: ISOSORBIDE MONONITRATE 60 MG TABLET PO SCH ×2 (08:52→21:51)
[2018-08-26] MEDS: APIXABAN 2.5 MG TABLET PO SCH ×2 (08:52→21:51)
[2018-08-26] MEDS: CLOPIDOGREL 75 MG TABLET PO SCH (08:52)
[2018-08-26] MEDS: CALCIUM (CARBONATE)/VITAMIN D 600 MG-400 UNIT TABLET PO SCH (08:52)
[2018-08-26] MEDS: PANTOPRAZOLE 40 MG TABLET PO SCH (08:52)
[2018-08-26] MEDS: MULTIVITAMIN (CENTRUM) TABLET PO SCH (08:52)
[2018-08-26] MEDS: CARVEDILOL 6.25 MG TABLET PO SCH ×2 (08:52→16:12)
[2018-08-26] MEDS: FUROSEMIDE 40 MG/4 ML VIAL IV SCH ×2 (08:53→15:40)
[2018-08-26] MEDS: POTASSIUM CHLORIDE 20 MEQ TABLET PO SCH ×3 (08:53→21:52)
[2018-08-26] MEDS ORDERED: POTASSIUM CHLORIDE 20 MEQ PACK PO ONE (10:00)
[2018-08-26] MEDS ORDERED: INFLUENZA VIRUS VACCINE 0.5 ML SYRINGE IM ONE (11:30)
[2018-08-26] MEDS: INSULIN LISPRO 100 UNIT/ML SUBCUT SCH ×2 (16:12→21:52)
[2018-08-26] MEDS: ATORVASTATIN 40 MG TABLET PO SCH (21:56)
[2018-08-27 05:27] LABS: Basophils % 0.6 % (0.0-0.8); Eosinophils # 0.1 10*3/uL (0.0-0.87); Eosinophils % 2.3 % (0.00-10.9); Hemoglobin 8.6 GM/DL (14.0-18.0); Immature Granulocytes % 0.2 %; Immature Granulocytes Absolute 0.01 #; Lymphocytes # 0.8 10*3/uL (1.4-4.0); Lymphocytes % 16.9 % (21.2-54.2); Mean Corpuscular HGB Conc 33.1 GM/DL (32-36); Mean Corpuscular Hemoglobin 24 PG (27-34); Mean Corpuscular Volume 72.4 FL (87-102); Monocytes # 0.6 10*3/uL (0.11-0.8); Monocytes % 12.3 % (1.7-12.7); Neutrophils # 3.3 10*3/uL (1.4-7.4); Neutrophils % 67.7 % (38.7-73.9); Platelet Count 105 T/CUMM (130-400); Red Blood Count 3.59 MC/CUMM (3.8-5.5); Red Cell Distribution Width 16.9 % (9.3-17.3); White Blood Count 4.8 T/CUMM (4-12)
[2018-08-27 05:57] LABS: Albumin 2.9 G/DL (3.4-5.0); Bilirubin,Total 1.6 MG/DL (0.2-1.0); Calcium 8.6 MG/DL (8.5-10.1); Potassium 3.1 MMOL/L (3.5-5.1); Total Protein 6.2 G/DL (6.4-8.3)
[2018-08-27 07:43] VITALS: BP 131/66
[2018-08-27] MEDS: INSULIN LISPRO 100 UNIT/ML SUBCUT SCH (09:11)
[2018-08-27] MEDS: MULTIVITAMIN (CENTRUM) TABLET PO SCH (09:23)
[2018-08-27] MEDS: ISOSORBIDE MONONITRATE 60 MG TABLET PO SCH (09:23)
[2018-08-27] MEDS: CLOPIDOGREL 75 MG TABLET PO SCH (09:23)
[2018-08-27] MEDS: POTASSIUM CHLORIDE 20 MEQ TABLET PO SCH (09:23)
[2018-08-27] MEDS: PANTOPRAZOLE 40 MG TABLET PO SCH (09:23)
[2018-08-27] MEDS: CALCIUM (CARBONATE)/VITAMIN D 600 MG-400 UNIT TABLET PO SCH (09:24)
[2018-08-27] MEDS: FUROSEMIDE 40 MG/4 ML VIAL IV SCH (09:24)
[2018-08-27] MEDS: CARVEDILOL 6.25 MG TABLET PO SCH (09:24)
[2018-08-27] MEDS: APIXABAN 2.5 MG TABLET PO SCH (09:25)
== END 2018-08-27 10:20 | disposition home or self-care (01) | DRG 291 ==
LOC: N.ED 14:45 → SUATTDRO 19:57 → N.EDINP 19:57 → N.2E 21:09
PROVIDERS: ADMIT Internal Medicine; ATTEND Internal Medicine

== ENCOUNTER 2018-10-25 10:31 | Inpatient (IN) ==
[2018-10-25] MEDS ORDERED: DOCUSATE SODIUM 100 MG CAPSULE PO PRN (10:58)
[2018-10-25] MEDS ORDERED: MAGNESIUM SULF RIDER 2 GM in PREMIX 1 EACH IV PRN (10:58)
[2018-10-25] MEDS ORDERED: MAGNESIUM SULF RIDER 4 GM in PREMIX 1 EACH IV PRN (10:58)
[2018-10-25] MEDS ORDERED: ZALEPLON 5 MG CAPSULE PO PRN (10:58)
[2018-10-25] MEDS ORDERED: ONDANSETRON 4 MG/2 ML VIAL IV PRN (10:58)
[2018-10-25] MEDS ORDERED: ACETAMINOPHEN 325 MG TABLET PO PRN (10:58)
[2018-10-25] MEDS ORDERED: metOLazone 5 MG TABLET PO PRN (11:09)
[2018-10-25] MEDS ORDERED: NITROGLYCERIN SL 0.4 MG TABLET SL PRN (11:09)
[2018-10-25] MEDS ORDERED: CYCLOBENZAPRINE 10 MG TABLET PO PRN (11:09)
[2018-10-25] MEDS ORDERED: GLUCAGON 1 MG VIAL IM PRN (11:19)
[2018-10-25] MEDS ORDERED: DEXTROSE 50% 25 GM/50 ML SYRINGE IV PRN (11:19)
[2018-10-25] MEDS: INSULIN REGULAR 100 UNIT/ML SUBCUT SCH ×3 (12:19→21:30)
[2018-10-25 14:37] LABS: Basophils % 0.8 % (0.0-0.8); Eosinophils # 0.1 10*3/uL (0.0-0.87); Eosinophils % 1.8 % (0.00-10.9); Hematocrit 26.3 VOL% (42.0-52.0); Hemoglobin 8.4 GM/DL (14.0-18.0); Immature Granulocytes % 0.5 %; Immature Granulocytes Absolute 0.02 #; Lymphocytes # 0.5 10*3/uL (1.4-4.0); Lymphocytes % 13.4 % (21.2-54.2); Mean Corpuscular HGB Conc 31.9 GM/DL (32-36); Mean Corpuscular Hemoglobin 22 PG (27-34); Mean Corpuscular Volume 68.5 FL (87-102); Monocytes # 0.4 10*3/uL (0.11-0.8); Monocytes % 11.3 % (1.7-12.7); Neutrophils # 2.8 10*3/uL (1.4-7.4); Neutrophils % 72.2 % (38.7-73.9); Platelet Count 68 T/CUMM (130-400); Red Blood Count 3.84 MC/CUMM (3.8-5.5); Red Cell Distribution Width 18.7 % (9.3-17.3); White Blood Count 3.9 T/CUMM (4-12)
[2018-10-25 14:52] LABS: Albumin 2.9 G/DL (3.4-5.0); Bilirubin,Total 2.1 MG/DL (0.2-1.0); Calcium 8.8 MG/DL (8.5-10.1); Osmolality,Calculated 276.2 MOS/KG (273-304); Total Protein 6.3 G/DL (6.4-8.3)
[2018-10-25 14:54] LABS: Potassium 2.2 MMOL/L (3.5-5.1)
[2018-10-25] MEDS: FUROSEMIDE 40 MG/4 ML VIAL IV SCH ×2 (15:37→20:19)
[2018-10-25] MEDS: POTASSIUM CHLORIDE 20 MEQ TABLET PO PRN ×2 (15:37→17:47)
[2018-10-25] MEDS: DOBUTamine 500 MG/250 ML PREMIX IV SCH (15:38)
[2018-10-25 15:59] LABS: Platelet Estimate Decreased
[2018-10-25 16:01] LABS: Giant Platelets Few
[2018-10-25 16:23] LABS: Ovalocytes Few; Schistocytes 2+
[2018-10-25 16:24] LABS: Anisocytosis 1+; Elliptocytes Few; Hypochromasia 1+
[2018-10-25] MEDS: ATORVASTATIN 40 MG TABLET PO SCH (20:17)
[2018-10-25] MEDS: CARVEDILOL 6.25 MG TABLET PO SCH (20:18)
[2018-10-25] MEDS: ISOSORBIDE MONONITRATE 60 MG TABLET PO SCH (20:18)
[2018-10-25] MEDS: APIXABAN 2.5 MG TABLET PO SCH (20:18)
[2018-10-25] MEDS ORDERED: POTASSIUM CHLORIDE 20 MEQ TABLET PO SCH (21:00)
[2018-10-25 21:56] LABS: Apearance,Urine CLEAR (Clear); Bilirubin,Urine Negative (Negative); Blood, Urine Moderate mg/dL (Negative); Glucose,Urine (UA) Negative (Negative); Ketones,Urine Negative (Negative); Nitrite,Urine Negative (Negative); Protein,Urine Negative; RBC,Urine 30 /HPF (0-4); Urine Color Yellow (Yellow); Urine Specific Gravity 1.005 (1.001-1.035); Urine Urobilinogen < 2.0 EU/DL (0.2-1.0); WBC,Urine 18 /HPF (0-6)
[2018-10-25] MEDS ORDERED: POTASSIUM CHLORIDE 20 MEQ TABLET PO ONE (23:00)
[2018-10-26 04:27] LABS: Basophils % 0.6 % (0.0-0.8); Eosinophils # 0.1 10*3/uL (0.0-0.87); Eosinophils % 1.3 % (0.00-10.9); Hematocrit 25.4 VOL% (42.0-52.0); Hemoglobin 8.2 GM/DL (14.0-18.0); Immature Granulocytes % 0.4 %; Immature Granulocytes Absolute 0.02 #; Lymphocytes # 0.5 10*3/uL (1.4-4.0); Lymphocytes % 9.6 % (21.2-54.2); Mean Corpuscular HGB Conc 32.3 GM/DL (32-36); Mean Corpuscular Hemoglobin 22 PG (27-34); Mean Corpuscular Volume 66.7 FL (87-102); Monocytes # 0.6 10*3/uL (0.11-0.8); Neutrophils # 4.2 10*3/uL (1.4-7.4); Neutrophils % 77.1 % (38.7-73.9); Red Blood Count 3.81 MC/CUMM (3.8-5.5); Red Cell Distribution Width 18.5 % (9.3-17.3); White Blood Count 5.4 T/CUMM (4-12)
[2018-10-26 04:35] LABS: Platelet Count 69 T/CUMM (130-400)
[2018-10-26 04:47] LABS: Alanine Aminotransferase 14 U/L (16-61); Albumin 3.1 G/DL (3.4-5.0); Alkaline Phosphatase 57 U/L (45-117); Aspartate Amino Transferase 23 U/L (0-37); Blood Urea Nitrogen 56 MG/DL (7-18); Calcium 8.8 MG/DL (8.5-10.1); Cholesterol < 50 MG/DL (50-200); Glucose 62 MG/DL (74-106); HDL Cholesterol 23 MG/DL (40-60); Osmolality,Calculated 275.7 MOS/KG (273-304); Potassium 2.7 MMOL/L (3.5-5.1); Risk Ratio 2.17; Sodium 131 MMOL/L (136-145); Total Protein 6.1 G/DL (6.4-8.3); Triglycerides 43 MG/DL (2-150); VLDL CHOLESTEROL 8.6 MG/DL
[2018-10-26] MEDS: POTASSIUM CHLORIDE 20 MEQ TABLET PO PRN ×3 (05:02→23:58)
[2018-10-26 06:07] LABS: Acanthocytes Few; Anisocytosis 1+; Hypochromasia 1+; Microcytosis 2+
[2018-10-26 06:08] LABS: Ovalocytes Few; Platelet Estimate Decreased; Poikilocytosis 1+; Target Cells Slight
[2018-10-26] MEDS: INSULIN REGULAR 100 UNIT/ML SUBCUT SCH ×4 (10:40→21:08)
[2018-10-26] MEDS: CARVEDILOL 6.25 MG TABLET PO SCH ×2 (10:48→21:07)
[2018-10-26] MEDS: APIXABAN 2.5 MG TABLET PO SCH ×2 (10:49→21:08)
[2018-10-26] MEDS: MULTIVITAMIN (CENTRUM) TABLET PO SCH (10:49)
[2018-10-26] MEDS: PANTOPRAZOLE 40 MG TABLET PO SCH (10:49)
[2018-10-26] MEDS: ISOSORBIDE MONONITRATE 60 MG TABLET PO SCH ×2 (10:49→21:07)
[2018-10-26] MEDS: CALCIUM (CARBONATE)/VITAMIN D 600 MG-400 UNIT TABLET PO SCH (10:50)
[2018-10-26] MEDS: POTASSIUM CHLORIDE 20 MEQ TABLET PO SCH ×3 (10:50→21:07)
[2018-10-26] MEDS: CLOPIDOGREL 75 MG TABLET PO SCH (10:51)
[2018-10-26] MEDS: FUROSEMIDE 40 MG/4 ML VIAL IV SCH ×3 (11:23→21:08)
[2018-10-26] MEDS: ATORVASTATIN 40 MG TABLET PO SCH (21:07)
[2018-10-26] MEDS: AMITRIPTYLINE 25 MG TABLET PO PRN (21:08)
[2018-10-26] MEDS: DOBUTamine 500 MG/250 ML PREMIX IV SCH (23:58)
[2018-10-27 05:20] LABS: Basophils % 0.5 % (0.0-0.8); Eosinophils # 0.1 10*3/uL (0.0-0.87); Eosinophils % 2.4 % (0.00-10.9); Hematocrit 26.3 VOL% (42.0-52.0); Hemoglobin 8.2 GM/DL (14.0-18.0); Immature Granulocytes % 0.5 %; Immature Granulocytes Absolute 0.02 #; Lymphocytes # 0.7 10*3/uL (1.4-4.0); Lymphocytes % 17.1 % (21.2-54.2); Mean Corpuscular HGB Conc 31.2 GM/DL (32-36); Mean Corpuscular Hemoglobin 21 PG (27-34); Mean Corpuscular Volume 68.1 FL (87-102); Monocytes # 0.6 10*3/uL (0.11-0.8); Monocytes % 14.7 % (1.7-12.7); Neutrophils # 2.7 10*3/uL (1.4-7.4); Neutrophils % 64.8 % (38.7-73.9); Red Blood Count 3.86 MC/CUMM (3.8-5.5); Red Cell Distribution Width 18.6 % (9.3-17.3); White Blood Count 4.2 T/CUMM (4-12)
[2018-10-27 05:25] LABS: Platelet Count 66 T/CUMM (130-400)
[2018-10-27 05:38] LABS: Bilirubin,Total 2.6 MG/DL (0.2-1.0); Calcium 9.3 MG/DL (8.5-10.1); Osmolality,Calculated 280.2 MOS/KG (273-304); Potassium 3.3 MMOL/L (3.5-5.1); Total Protein 5.9 G/DL (6.4-8.3)
[2018-10-27 06:14] LABS: Acanthocytes 2+; Anisocytosis 2+; Elliptocytes Few; Hypochromasia 3+; Microcytosis 2+; Ovalocytes 1+; Platelet Estimate Decreased
[2018-10-27] MEDS: POTASSIUM CHLORIDE 20 MEQ TABLET PO PRN ×2 (06:39→12:35)
[2018-10-27] MEDS: INSULIN REGULAR 100 UNIT/ML SUBCUT SCH ×4 (07:30→22:05)
[2018-10-27] MEDS: POTASSIUM CHLORIDE 20 MEQ TABLET PO SCH ×3 (10:29→22:04)
[2018-10-27] MEDS: PANTOPRAZOLE 40 MG TABLET PO SCH (10:29)
[2018-10-27] MEDS: MULTIVITAMIN (CENTRUM) TABLET PO SCH (10:29)
[2018-10-27] MEDS: APIXABAN 2.5 MG TABLET PO SCH ×2 (10:29→22:04)
[2018-10-27] MEDS: CALCIUM (CARBONATE)/VITAMIN D 600 MG-400 UNIT TABLET PO SCH (10:29)
[2018-10-27] MEDS: CLOPIDOGREL 75 MG TABLET PO SCH (10:30)
[2018-10-27] MEDS: ISOSORBIDE MONONITRATE 60 MG TABLET PO SCH ×2 (10:30→22:04)
[2018-10-27] MEDS: FUROSEMIDE 40 MG/4 ML VIAL IV SCH ×3 (10:35→22:05)
[2018-10-27] MEDS: CARVEDILOL 6.25 MG TABLET PO SCH ×2 (10:40→22:30)
[2018-10-27] MEDS: DOBUTamine 500 MG/250 ML PREMIX IV SCH ×2 (20:30→20:50)
[2018-10-27] MEDS: ATORVASTATIN 40 MG TABLET PO SCH (22:04)
[2018-10-28 04:40] LABS: Eosinophils # 0.1 10*3/uL (0.0-0.87); Eosinophils % 3.2 % (0.00-10.9); Hematocrit 26.4 VOL% (42.0-52.0); Hemoglobin 8.2 GM/DL (14.0-18.0); Immature Granulocytes % 0.5 %; Immature Granulocytes Absolute 0.02 #; Lymphocytes # 0.6 10*3/uL (1.4-4.0); Lymphocytes % 14.9 % (21.2-54.2); Mean Corpuscular HGB Conc 31.1 GM/DL (32-36); Mean Corpuscular Hemoglobin 21 PG (27-34); Mean Corpuscular Volume 68.9 FL (87-102); Monocytes # 0.8 10*3/uL (0.11-0.8); Monocytes % 18.8 % (1.7-12.7); Neutrophils # 2.5 10*3/uL (1.4-7.4); Neutrophils % 61.6 % (38.7-73.9); Red Blood Count 3.83 MC/CUMM (3.8-5.5)
[2018-10-28 04:42] LABS: Platelet Count 69 T/CUMM (130-400)
[2018-10-28 04:56] LABS: Albumin 2.9 G/DL (3.4-5.0); Bilirubin,Total 2.2 MG/DL (0.2-1.0); Calcium 8.7 MG/DL (8.5-10.1); Potassium 3.3 MMOL/L (3.5-5.1); Total Protein 5.9 G/DL (6.4-8.3)
[2018-10-28 05:05] LABS: Eosinophils 3 % (0-10); Hypochromasia 1+; Lymphocytes 12 % (20-55); Microcytosis 2+; Ovalocytes Slight; Platelet Estimate Decreased; Segmented Neutrophils 73 % (50-85); Total Cells Counted 100
[2018-10-28] MEDS: POTASSIUM CHLORIDE 20 MEQ TABLET PO PRN ×2 (06:23→08:43)
[2018-10-28] MEDS ORDERED: POTASSIUM CHLORIDE 20 MEQ TABLET PO ONE (07:53)
[2018-10-28] MEDS: MULTIVITAMIN (CENTRUM) TABLET PO SCH (08:28)
[2018-10-28] MEDS: ISOSORBIDE MONONITRATE 60 MG TABLET PO SCH ×2 (08:37→21:00)
[2018-10-28] MEDS: APIXABAN 2.5 MG TABLET PO SCH ×2 (08:37→21:00)
[2018-10-28] MEDS: CLOPIDOGREL 75 MG TABLET PO SCH (08:37)
[2018-10-28] MEDS: CALCIUM (CARBONATE)/VITAMIN D 600 MG-400 UNIT TABLET PO SCH (08:37)
[2018-10-28] MEDS: PANTOPRAZOLE 40 MG TABLET PO SCH (08:37)
[2018-10-28] MEDS: CARVEDILOL 6.25 MG TABLET PO SCH ×2 (08:37→21:00)
[2018-10-28] MEDS: INSULIN REGULAR 100 UNIT/ML SUBCUT SCH ×4 (08:37→20:59)
[2018-10-28] MEDS: FUROSEMIDE 40 MG/4 ML VIAL IV SCH ×3 (08:38→21:00)
[2018-10-28] MEDS: POTASSIUM CHLORIDE 20 MEQ TABLET PO SCH ×3 (08:39→20:59)
[2018-10-28 10:58] LABS: Apearance,Urine CLEAR (Clear); Bacteria,Urine Occasional /HPF (Few); Bilirubin,Urine Negative (Negative); Blood, Urine Small mg/dL (Negative); Glucose,Urine (UA) Negative (Negative); Ketones,Urine Negative (Negative); Nitrite,Urine Negative (Negative); Protein,Urine Negative; RBC,Urine 8 /HPF (0-4); Urine Color Yellow (Yellow); Urine Specific Gravity 1.006 (1.001-1.035); Urine Urobilinogen < 2.0 EU/DL (0.2-1.0); WBC,Urine 1 /HPF (0-6)
[2018-10-28] MEDS ORDERED: DOBUTamine 500 MG/250 ML PREMIX IV SCH (11:00)
[2018-10-28] MEDS ORDERED: TUBERCULIN SKIN TEST 0.1 ML SYRINGE INTRADERM ONE (13:30)
[2018-10-28] MEDS: DOBUTamine 500 MG/250 ML PREMIX IV SCH (14:26)
[2018-10-28] MEDS: AMITRIPTYLINE 25 MG TABLET PO PRN (21:00)
[2018-10-28] MEDS: ATORVASTATIN 40 MG TABLET PO SCH (21:00)
[2018-10-29 03:27] LABS: Basophils % 0.7 % (0.0-0.8); Eosinophils # 0.1 10*3/uL (0.0-0.87); Eosinophils % 2.7 % (0.00-10.9); Immature Granulocytes % 0.5 %; Immature Granulocytes Absolute 0.02 #; Lymphocytes # 0.6 10*3/uL (1.4-4.0); Lymphocytes % 14.4 % (21.2-54.2); Mean Corpuscular HGB Conc 30.8 GM/DL (32-36); Mean Corpuscular Hemoglobin 21 PG (27-34); Mean Corpuscular Volume 67.9 FL (87-102); Monocytes # 0.5 10*3/uL (0.11-0.8); Monocytes % 11.5 % (1.7-12.7); Neutrophils # 2.9 10*3/uL (1.4-7.4); Neutrophils % 70.2 % (38.7-73.9); Red Blood Count 3.83 MC/CUMM (3.8-5.5); Red Cell Distribution Width 18.8 % (9.3-17.3); White Blood Count 4.1 T/CUMM (4-12)
[2018-10-29 03:31] LABS: Platelet Count 78 T/CUMM (130-400)
[2018-10-29 03:51] LABS: Calcium 8.8 MG/DL (8.5-10.1); Osmolality,Calculated 280.4 MOS/KG (273-304)
[2018-10-29 04:01] LABS: Hypochromasia 1+; Microcytosis 1+; Ovalocytes 1+; Platelet Estimate Decreased
[2018-10-29 04:02] LABS: Acanthocytes Few
[2018-10-29] MEDS: INSULIN REGULAR 100 UNIT/ML SUBCUT SCH ×4 (10:14→20:58)
[2018-10-29] MEDS: MULTIVITAMIN (CENTRUM) TABLET PO SCH (10:15)
[2018-10-29] MEDS: CALCIUM (CARBONATE)/VITAMIN D 600 MG-400 UNIT TABLET PO SCH (10:15)
[2018-10-29] MEDS: APIXABAN 2.5 MG TABLET PO SCH ×2 (10:16→20:51)
[2018-10-29] MEDS: ISOSORBIDE MONONITRATE 60 MG TABLET PO SCH ×2 (10:16→20:52)
[2018-10-29] MEDS: CARVEDILOL 6.25 MG TABLET PO SCH ×2 (10:16→20:52)
[2018-10-29] MEDS: POTASSIUM CHLORIDE 20 MEQ TABLET PO SCH ×3 (10:17→20:52)
[2018-10-29] MEDS: CLOPIDOGREL 75 MG TABLET PO SCH (10:17)
[2018-10-29] MEDS: PANTOPRAZOLE 40 MG TABLET PO SCH (10:18)
[2018-10-29] MEDS: FUROSEMIDE 40 MG/4 ML VIAL IV SCH (10:23)
[2018-10-29] MEDS ORDERED: MAGNESIUM SULF RIDER 4 GM in PREMIX 1 EACH IV PRN (13:13)
[2018-10-29] MEDS ORDERED: MAGNESIUM SULF RIDER 2 GM in PREMIX 1 EACH IV PRN (13:13)
[2018-10-29] MEDS: FUROSEMIDE 80 MG TABLET PO SCH ×2 (16:04→20:52)
[2018-10-29] MEDS: ATORVASTATIN 40 MG TABLET PO SCH (20:52)
[2018-10-29] MEDS: AMITRIPTYLINE 25 MG TABLET PO PRN (20:52)
[2018-10-30 04:11] LABS: Basophils % 0.9 % (0.0-0.8); Eosinophils # 0.1 10*3/uL (0.0-0.87); Eosinophils % 3.2 % (0.00-10.9); Hematocrit 26.7 VOL% (42.0-52.0); Hemoglobin 8.1 GM/DL (14.0-18.0); Immature Granulocytes % 0.3 %; Immature Granulocytes Absolute 0.01 #; Lymphocytes # 0.6 10*3/uL (1.4-4.0); Lymphocytes % 17.3 % (21.2-54.2); Mean Corpuscular HGB Conc 30.3 GM/DL (32-36); Mean Corpuscular Hemoglobin 21 PG (27-34); Mean Corpuscular Volume 69.2 FL (87-102); Monocytes # 0.5 10*3/uL (0.11-0.8); Neutrophils # 2.3 10*3/uL (1.4-7.4); Neutrophils % 65.3 % (38.7-73.9); Platelet Count 67 T/CUMM (130-400); Red Blood Count 3.86 MC/CUMM (3.8-5.5); Red Cell Distribution Width 18.9 % (9.3-17.3); White Blood Count 3.5 T/CUMM (4-12)
[2018-10-30 04:31] LABS: Calcium 8.4 MG/DL (8.5-10.1); Osmolality,Calculated 281.2 MOS/KG (273-304); Potassium 4.1 MMOL/L (3.5-5.1)
[2018-10-30] MEDS ORDERED: FUROSEMIDE 80 MG TABLET PO SCH (08:00)
[2018-10-30] MEDS: CARVEDILOL 6.25 MG TABLET PO SCH (09:53)
[2018-10-30] MEDS: INSULIN REGULAR 100 UNIT/ML SUBCUT SCH (09:53)
[2018-10-30] MEDS: MULTIVITAMIN (CENTRUM) TABLET PO SCH (09:53)
[2018-10-30] MEDS: APIXABAN 2.5 MG TABLET PO SCH (09:53)
[2018-10-30] MEDS: CALCIUM (CARBONATE)/VITAMIN D 600 MG-400 UNIT TABLET PO SCH (09:53)
[2018-10-30] MEDS: PANTOPRAZOLE 40 MG TABLET PO SCH (09:54)
[2018-10-30] MEDS: CLOPIDOGREL 75 MG TABLET PO SCH (09:54)
[2018-10-30] MEDS: POTASSIUM CHLORIDE 20 MEQ TABLET PO SCH (09:54)
[2018-10-30] MEDS: ISOSORBIDE MONONITRATE 60 MG TABLET PO SCH (09:54)
[2018-10-30] MEDS: FUROSEMIDE 80 MG TABLET PO SCH (09:54)
[2018-10-30 11:54] VITALS: BP 110/53
== END 2018-10-30 14:44 | disposition swing bed (61) | DRG 291 ==
LOC: N.TELES 11:13
PROVIDERS: ADMIT Internal Medicine Interventional Cardiology; ATTEND Internal Medicine Interventional Cardiology

== ENCOUNTER 2019-05-04 12:20 | Inpatient (IN) ==
[2019-05-04] MEDS ORDERED: FUROSEMIDE 100 MG/10 ML VIAL IV STA (12:48)
[2019-05-04] MEDS ORDERED: ONDANSETRON 4 MG/2 ML VIAL IV STA (12:48)
[2019-05-04] MEDS ORDERED: ALBUTEROL/IPRATROPIUM 3 ML NEB RESP TX STA (12:48)
[2019-05-04 13:44] LABS: Basophils % 0.5 % (0.0-0.8); Eosinophils # 0.1 10*3/uL (0.0-0.87); Hematocrit 26.3 VOL% (42.0-52.0); Hemoglobin 8.4 GM/DL (14.0-18.0); Immature Granulocytes % 0.5 %; Immature Granulocytes Absolute 0.02 #; Lymphocytes # 0.6 10*3/uL (1.4-4.0); Lymphocytes % 13.9 % (21.2-54.2); Mean Corpuscular HGB Conc 31.9 GM/DL (32-36); Mean Corpuscular Volume 70.7 FL (87-102); Monocytes % 10.9 % (1.7-12.7); Neutrophils % 71.2 % (38.7-73.9); Platelet Count 82 T/CUMM (130-400); Red Blood Count 3.72 MC/CUMM (3.8-5.5); Red Cell Distribution Width 18.7 % (9.3-17.3); White Blood Count 4.4 T/CUMM (4-12)
[2019-05-04 14:00] LABS: Apearance,Urine CLEAR (Clear); Bilirubin,Urine Negative (Negative); Blood, Urine Small mg/dL (Negative); Glucose,Urine (UA) Negative (Negative); Ketones,Urine Negative (Negative); Nitrite,Urine Negative (Negative); Protein,Urine Negative; Urine Color Yellow (Yellow); Urine Specific Gravity 1.006 (1.001-1.035); Urine Urobilinogen < 2.0 EU/DL (0.2-1.0); WBC,Urine 1 /HPF (0-6)
[2019-05-04 14:06] LABS: INR 1.5; PT Patient Result 16.1 SECS; Partial Thromboplastin Time 36.7 SECS (0-40)
[2019-05-04 14:13] LABS: Alanine Aminotransferase 16 U/L (16-61); Albumin 2.9 G/DL (3.4-5.0); Alkaline Phosphatase 62 U/L (45-117); Aspartate Amino Transferase 26 U/L (0-37); Blood Urea Nitrogen 63 MG/DL (7-18); Calcium 8.7 MG/DL (8.5-10.1); Glucose 144 MG/DL (74-106); Osmolality,Calculated 267.8 MOS/KG (273-304); Total Protein 5.9 G/DL (6.4-8.3); Troponin I 0.045 NG/ML (0.00-0.045)
[2019-05-04 14:41] LABS: Platelet Estimate Decreased
[2019-05-04] MEDS ORDERED: ACETAMINOPHEN 325 MG TABLET PO PRN (16:22)
[2019-05-04] MEDS ORDERED: LACTULOSE 20 GM/30 ML UDCUP PO PRN (16:22)
[2019-05-04] MEDS ORDERED: ONDANSETRON 4 MG/2 ML VIAL IV PRN (16:22)
[2019-05-04] MEDS ORDERED: NITROGLYCERIN SL 0.4 MG TABLET SL PRN (16:28)
[2019-05-04] MEDS ORDERED: DEXTROSE 50% 25 GM/50 ML VIAL IV PRN (16:31)
[2019-05-04] MEDS ORDERED: GLUCAGON 1 MG VIAL IM PRN (16:31)
[2019-05-04 16:52] LABS: Risk Ratio 2.23; Thyroid Stimulating Hormone 1.4 uIU/ml (0.358-3.74); VLDL CHOLESTEROL 12.2 MG/DL
[2019-05-04 18:24] LABS: Apearance,Urine CLEAR (Clear); Bacteria,Urine Occasional /HPF (Few); Bilirubin,Urine Negative (Negative); Blood, Urine Moderate mg/dL (Negative); Glucose,Urine (UA) Negative (Negative); Ketones,Urine Negative (Negative); Mucus,Urine Occasional /LPF (Occasional); Nitrite,Urine Negative (Negative); Protein,Urine Negative; RBC,Urine 26 /HPF (0-4); Urine Color Yellow (Yellow); Urine Specific Gravity 1.005 (1.001-1.035); Urine Urobilinogen < 2.0 EU/DL (0.2-1.0); WBC,Urine 22 /HPF (0-6)
[2019-05-04] MEDS ORDERED: ENOXAPARIN 40 MG/0.4 ML SYRINGE SUBCUT SCH (21:00)
[2019-05-04] MEDS: INSULIN LISPRO 100 UNIT/ML SUBCUT SCH (21:32)
[2019-05-04] MEDS: ISOSORBIDE MONONITRATE 30 MG TABLET PO SCH (21:34)
[2019-05-04] MEDS: APIXABAN 2.5 MG TABLET PO SCH (21:35)
[2019-05-04] MEDS: CALCIUM (CARBONATE) 600 MG TABLET PO SCH (21:35)
[2019-05-04] MEDS: ATORVASTATIN 40 MG TABLET PO SCH (21:35)
[2019-05-04] MEDS: CARVEDILOL 3.125 MG TABLET PO SCH (21:35)
[2019-05-04] MEDS: FUROSEMIDE 40 MG/4 ML VIAL IV SCH (21:35)
[2019-05-04] MEDS: POTASSIUM CHLORIDE 20 MEQ TABLET PO SCH (21:35)
[2019-05-05] MEDS: POTASSIUM CHLORIDE 20 MEQ TABLET PO PRN ×4 (00:15→23:00)
[2019-05-05 04:16] LABS: Basophils % 0.7 % (0.0-0.8); Eosinophils # 0.2 10*3/uL (0.0-0.87); Eosinophils % 2.5 % (0.00-10.9); Hematocrit 25.2 VOL% (42.0-52.0); Hemoglobin 8.2 GM/DL (14.0-18.0); Immature Granulocytes % 0.5 %; Immature Granulocytes Absolute 0.03 #; Lymphocytes # 0.6 10*3/uL (1.4-4.0); Lymphocytes % 9.5 % (21.2-54.2); Mean Corpuscular HGB Conc 32.5 GM/DL (32-36); Monocytes % 10.6 % (1.7-12.7); Neutrophils % 76.2 % (38.7-73.9); Platelet Count 76 T/CUMM (130-400); Red Cell Distribution Width 18.5 % (9.3-17.3)
[2019-05-05 04:37] LABS: Calcium 9.2 MG/DL (8.5-10.1); Osmolality,Calculated 272.1 MOS/KG (273-304)
[2019-05-05 05:10] LABS: Band Neutrophils 4 % (0-10); Lymphocytes 15 % (20-55); Nucleated Red Blood Cells 1 (0-5); Segmented Neutrophils 69 % (50-85); Total Cells Counted 100
[2019-05-05 05:11] LABS: Acanthocytes 1+; Anisocytosis 1+; Hypochromasia 1+; Ovalocytes Few; Platelet Estimate Decreased
[2019-05-05] MEDS: INSULIN LISPRO 100 UNIT/ML SUBCUT SCH ×4 (08:07→21:08)
[2019-05-05] MEDS: CARVEDILOL 3.125 MG TABLET PO SCH ×2 (08:45→16:09)
[2019-05-05] MEDS: ESCITALOPRAM 10 MG TABLET PO SCH (08:45)
[2019-05-05] MEDS: CHOLECALCIFEROL 1,000 UNIT TABLET PO SCH (08:45)
[2019-05-05] MEDS: ISOSORBIDE MONONITRATE 30 MG TABLET PO SCH ×2 (08:45→21:07)
[2019-05-05] MEDS: APIXABAN 2.5 MG TABLET PO SCH ×2 (08:45→21:06)
[2019-05-05] MEDS: CLOPIDOGREL 75 MG TABLET PO SCH (08:46)
[2019-05-05] MEDS: MULTIVITAMIN (CENTRUM) TABLET PO SCH (08:47)
[2019-05-05] MEDS: POTASSIUM CHLORIDE 20 MEQ TABLET PO SCH ×2 (08:47→21:06)
[2019-05-05] MEDS: CALCIUM (CARBONATE) 600 MG TABLET PO SCH ×2 (08:47→21:05)
[2019-05-05] MEDS: FUROSEMIDE 40 MG/4 ML VIAL IV SCH ×3 (08:51→21:07)
[2019-05-05] MEDS ORDERED: TUBERCULIN SKIN TEST 0.1 ML SYRINGE INTRADERM ONE (16:17)
[2019-05-05] MEDS: ATORVASTATIN 40 MG TABLET PO SCH (21:06)
[2019-05-06] MEDS: POTASSIUM CHLORIDE 20 MEQ TABLET PO PRN ×4 (01:08→09:48)
[2019-05-06 04:26] LABS: Basophils % 0.8 % (0.0-0.8); Eosinophils # 0.1 10*3/uL (0.0-0.87); Eosinophils % 2.9 % (0.00-10.9); Hematocrit 26.1 VOL% (42.0-52.0); Hemoglobin 8.3 GM/DL (14.0-18.0); Immature Granulocytes % 0.4 %; Immature Granulocytes Absolute 0.02 #; Lymphocytes # 0.8 10*3/uL (1.4-4.0); Lymphocytes % 15.7 % (21.2-54.2); Mean Corpuscular HGB Conc 31.8 GM/DL (32-36); Mean Corpuscular Volume 71.3 FL (87-102); Monocytes % 14.9 % (1.7-12.7); Neutrophils % 65.3 % (38.7-73.9); Platelet Count 80 T/CUMM (130-400); Red Blood Count 3.66 MC/CUMM (3.8-5.5); Red Cell Distribution Width 18.6 % (9.3-17.3); White Blood Count 4.8 T/CUMM (4-12)
[2019-05-06 04:43] LABS: Osmolality,Calculated 276.8 MOS/KG (273-304)
[2019-05-06 04:44] LABS: Calcium 9.2 MG/DL (8.5-10.1); Osmolality,Calculated 278.8 MOS/KG (273-304)
[2019-05-06 06:17] LABS: Anisocytosis 1+; Burr Cells 1+; Microcytosis 2+; Target Cells 1+
[2019-05-06 06:18] LABS: Platelet Estimate Decreased; Polychromasia Slight; Schistocytes Slight
[2019-05-06] MEDS ORDERED: SODIUM CHLORIDE 1 GM TABLET PO SCH (09:00)
[2019-05-06] MEDS: INSULIN LISPRO 100 UNIT/ML SUBCUT SCH ×2 (09:41→13:05)
[2019-05-06] MEDS: CARVEDILOL 3.125 MG TABLET PO SCH (09:44)
[2019-05-06] MEDS: CHOLECALCIFEROL 1,000 UNIT TABLET PO SCH (09:45)
[2019-05-06] MEDS: APIXABAN 2.5 MG TABLET PO SCH (09:48)
[2019-05-06] MEDS: CLOPIDOGREL 75 MG TABLET PO SCH (09:48)
[2019-05-06] MEDS: CALCIUM (CARBONATE) 600 MG TABLET PO SCH (09:48)
[2019-05-06] MEDS: MULTIVITAMIN (CENTRUM) TABLET PO SCH (09:50)
[2019-05-06] MEDS: ESCITALOPRAM 10 MG TABLET PO SCH (09:51)
[2019-05-06] MEDS: FUROSEMIDE 40 MG/4 ML VIAL IV SCH (09:52)
[2019-05-06] MEDS: ISOSORBIDE MONONITRATE 30 MG TABLET PO SCH (09:54)
[2019-05-06] MEDS: POTASSIUM CHLORIDE 20 MEQ TABLET PO SCH (09:55)
[2019-05-06 12:47] VITALS: BP 134/73
== END 2019-05-06 13:30 | disposition home health service (06) | DRG 291 ==
LOC: N.ED 12:20 → SUATTDRO 16:22 → N.EDINP 16:22 → N.TELES 17:38
PROVIDERS: ADMIT Internal Medicine; ATTEND Internal Medicine